=== PATIENT | male | born 1945 | race Caucasian/White ===

== ENCOUNTER 2020-01-18 09:37 | Outpatient (CLI) | payer MEDICARE, SELFPAY ==
--- NOTE | 2020-01-22 09:26 | WPDPFTINT ---
PFT Interpretation PFT Interpretation: This PFT met all criteria for ATS standards and reproducibility FEV/FVC post bronchodilator 67% FEV1 80% or 2.51 liters FVC 79% or 3.75 liters No bronchodilatory challenge was administered. TLC 84% RV 83% RV/TLC 38% DLCO 107% when adjusted for alveolar volume but not adjusted for hemoglobin Flow volume loops showed some end expiratory coving Impression: Mild airflow obstruction is present. This pattern may be suggestive of Asthma or COPD. Unfortunately no bronchodilator challenge was ordered which limits the interpretability of the study. Clinical correlation is advised.
== END 2020-01-18 09:38 | disposition home or self-care (01) ==
PROVIDERS: PCP Family Medicine; Visit Provider Family Medicine
DX: R06.00 Dyspnea, unspecified (principal); R06.89 Other abnormalities of breathing; G70.00 Myasthenia gravis without (acute) exacerbation
CPT/HCPCS: 94375; 94726; 94729

== ENCOUNTER 2022-07-12 13:52 | Emergency (ER) | payer MEDICARE, SELFPAY ==
--- NOTE | ~2022-07-12 | XR_ITS ---
XR chest 2V DATE: 07/12/2022 14:44 INDICATION: Cough and congestion for one month TECHNIQUE: 2 views COMPARISON: 09/30/2017 two-view chest FINDINGS: Heart size is normal. There is aortic calcification and unfolding. No hilar or mediastinal enlargement. No pulmonary infiltrate or consolidation, pleural effusion or pulmonary vascular congest ion or pneumothorax. Degenerative spurring of the thoracic spine. IMPRESSION: No active disease or significant change since 09/30/2017 Reviewed, dictated and finalized at location B.
[2022-07-12 14:03] VITALS: BP 128/87; PULSE 58; RESP 16; TEMP 36.4; O2SAT 98
[2022-07-12 14:05] VITALS: BP 128/87; PULSE 58; RESP 16; TEMP 36.4; O2SAT 98
--- NOTE | 2022-07-12 14:10 | ED.URI ---
HPI - URI/Sore Throat General Chief Complaint: Upper Respiratory Infection Stated Complaint: cough,congestion,shortness of breath Time Seen by Provider: 07/12/22 14:11 Source: patient, RN notes reviewed and old records reviewed Mode of arrival: ambulatory Limitations: no limitations History of Present Illness HPI Narrative: 76 year old male presents to [facility] care with complaints of cough,sinus congestion and drainage for about a month with no known fevers. Patient reports that he took home COVID test which was negative. Patient states that he has taken Mucinex, and used nasal spray with out resolution of his symptoms.Patient reports history of chronic sinus problems has not taken any antihistamines because messes with his prostate issues.Patient reports that his cough is productive and constant and he feels some dyspnea at times with exertion, SAO2 98% on room air, no tachypnea noted. MD elicited complaint: cough, rhinorrhea, nasal congestion and other Pertinent past history: sinusitis Onset (ago): week(s) (4) Consistency: constant Description of mucous: yellow Able to tolerate fluids by mouth: Yes Treatments prior to arrival: other (Mucinex and nasal spray.) Related Data Home Medications Medication Instructions Recorded Confirmed potassium gluconate 595 mg (99 mg) 595 mg PO DAILY 02/09/19 07/12/22 tablet vit C 250 mg-vit E 90 mg-zinc 40 1 tablet PO BID 02/09/19 07/12/22 mg-copper 1 [id number] capsule (PreserVision AREDS-2) zinc gluconate 50 mg tablet 50 mg PO DAILY 02/09/19 07/12/22 pyridostigmine bromide 60 mg tablet 60 mg PO BID 01/23/20 07/12/22 magnesium oxide 500 mg PO DAILY 03/31/22 07/12/22 terbinafine HCl 250 mg tablet 250 mg PO DAILY 03/31/22 07/12/22 Allergies Allergy/AdvReac Type Severity Reaction Status Date / Time No Known Allergies Allergy Verified 07/12/22 14:01 Review of Systems Review of Systems: CONSTITUTIONAL: Denies malaise, chills, sweats, or fever. EYES: Denies visual changes, redness, or discharge. ENT: Reports rhinorrhea, congestion, sinus pain,no otalgia, or sore throat. CARDIOVASCULAR: Denies chest pain, palpitations, or edema. RESPIRATORY: Reports loose cough.? Reports some dyspnea at times with exertion GASTROINTESTINAL: Denies abdominal pain, nausea, vomiting, diarrhea SKIN: Denies rash or itching. MUSCULOSKELETAL: Denies myalgia. NEUROLOGIC: Denies headache. All systems reviewed & are unremarkable except as noted in HPI and below PMFSH Past Medical History Medical History Asthma BPH (benign prostatic hyperplasia) Hypertension Macular degeneration Myasthenia gravis diagnosed 2018 no symptoms now SVT (supraventricular tachycardia) Surgical History Surgical History History of tonsillectomy Family History Family History Father Family history of Parkinson's disease Grandparent Hypertension Mother Family history of Parkinson's disease Social History Social History Smoking status: Former smoker Second hand tobacco smoke exposure: No Alcohol intake: current Drinks per week: 7 Substance use: never Substance use type: does not use Lack of Transportation: No Lack of Food: Never True Current Housing: I Have Housing Concerned About Future Housing: No Difficulty Paying Gas/Electric Bills: No Difficulty Paying for Meds: No Currently Unemployed: No Education: Bachelor's Degree Difficulty w/ Childcare or Family Care: No Gender identity (if verbalized by the patient): Male Comments At time of signature, agree with nursing past medical, surgical, social and family history. There is no relevant family history pertinent to the presenting complaint Exam Narrative: GENERAL: Well-appearing, wel
== END 2022-07-12 15:11 | disposition home or self-care (01) ==
PROVIDERS: Emergency Provider Registered Nurse; PCP Family Medicine
DX: J32.9 Chronic sinusitis, unspecified (principal); R05.3 Chronic cough; Z87.891 Personal history of nicotine dependence; J45.909 Unspecified asthma, uncomplicated; I10 Essential (primary) hypertension; N40.0 Benign prostatic hyperplasia without lower urinary tract symptoms; H35.30 Unspecified macular degeneration
CPT/HCPCS: 71046; 99213; G0463

== ENCOUNTER 2023-02-22 08:09 | Outpatient (CLI) | payer MEDICARE, SELFPAY ==
[2023-02-22 19:51] LABS: Alanine Aminotransferase 22 U/L (6-50); Albumin Level 3.4 g/dL (3.5-5.1); Alkaline Phosphatase 58 U/L (38-126); Anion Gap 4 mmol/L (8-16); Aspartate Amino Transferase 44 U/L (17-59); Bilirubin,Total 0.9 mg/dL (0.2-1.3); Blood Urea Nitrogen 17 mg/dL (9-20); Calcium 8.8 mg/dL (8.4-10.2); Carbon Dioxide 31 mmol/L (22-30); Chloride 102 mmol/L (98-107); Cholesterol 183 mg/dL (0-200); Estimated Glomerular Filt Rate > 60; Glucose 92 mg/dL (65-110); HDL Direct 57 mg/dL; Potassium 4.6 mmol/L (3.4-5.0); Sodium 137 mmol/L (137-145); Triglycerides 58 mg/dL (<150)
[2023-02-22 19:57] LABS: Basophils Percent Auto 0.5 % (0.2-1.2); Eosinophils Absolute Auto 0.2 K/mm3 (0-0.3); Eosinophils Percent Auto 2.4 % (0-4.4); Hematocrit 48.6 % (42.0-52.0); Hemoglobin 15.5 g/dL (14.0-18.0); Immature Granulocyte Absolute 0.03 K/mm3 (0.00-0.031); Immature Granulocyte Percent A 0.5 % (0-0.5); Lymphocytes Percent Auto 33.9 % (18.3-44.2); Mean Corpuscular HGB Conc 31.9 g/dl (32-36); Mean Corpuscular Hemoglobin 30.5 pg (26-34); Mean Corpuscular Volume 95.5 fl (80-100); Mean Platelet Volume 9.1 fl (7.4-10.4); Monocytes Absolute Auto 0.9 K/mm3 (0.1-0.6); Monocytes Percent Auto 14.1 % (2.6-8.5); Neutrophils Percent Auto 48.6 % (45.5-73.1); Platelet Count Result 198 k/mm3 (150-375); Red Blood Count 5.09 M/mm3 (4.6-6.20); Red Cell Distribution Width 13.3 % (11.5-14.5); White Blood Count 6.2 K/mm3 (4.5-10.0)
[2023-02-22 20:02] LABS: LDL Cholesterol Direct 96 mg/dL
[2023-02-22 20:21] LABS: Prostate Specific Antigen 0.4 ng/mL (< OR = 4.0)
[2023-02-22 20:43] LABS: Hepatitis C Virus Antibody Negative (Negative)
== END 2023-02-22 08:10 | disposition home or self-care (01) ==
PROVIDERS: PCP Family Medicine; Visit Provider Family Medicine
DX: N40.0 Benign prostatic hyperplasia without lower urinary tract symptoms (principal); R06.00 Dyspnea, unspecified; R06.89 Other abnormalities of breathing; E66.9 Obesity, unspecified; Z11.59 Encounter for screening for other viral diseases; E78.5 Hyperlipidemia, unspecified; I10 Essential (primary) hypertension; Z12.5 Encounter for screening for malignant neoplasm of prostate
CPT/HCPCS: 36415; 80053; 80061; 84153; 85025; 86803; G0103

== ENCOUNTER 2023-07-13 08:55 | Outpatient (CLI) | payer MEDICARE, SELFPAY ==
--- NOTE | 2023-08-04 18:49 | WPDSLEEPSTUD ---
Sleep Study Date of Study: 07/13/23 Ordering Provider: Sandy Rodriguez DO Interpreting Physician: Mitzy Wise MD Sleep Study Type: Split Polysomnogram Height: 1.85 m Weight: 113.398 kg Body Mass Index: 33.0 Neck Circumference (inches): 17 Parish: 11 Reason for Sleep Study Hypersomnolence Sleep History Joshua Hallman is a 77-year-old man with fragmented sleep, only 3 or 4 hours of sleep at a time. He has hypertension, asthma and COPD, hiatal hernia, erectile dysfunction and BPH. He he has not had any dreams for the last 4-5 months. There is a family history of sleep apnea, his brother uses CPAP. The patient has a difficult time falling asleep and wakes up during the night. He uses nose sprays including Afrin to help with nasal congestion. He also raises the head of the bed, and he uses Breathe Right nasal strips to help him breathe at night. He occasionally awakens from sleep feeling short of breath. He rarely wakes at night with heartburn, belching or coughing.??He occasionally snores loudly enough that others complain. He frequently has trouble sleeping when he has a cold. He rarely wakes up gasping for breath during the night. He occasionally has breathing problems at night. He rarely sweats excessively at night. He rarely notices his heart pounding or beating irregularly during the night. He occasionally falls asleep during the day. He occasionally falls asleep involuntarily, rarely falls asleep while driving. He never experiences loss of muscle tone with strong emotion. He never has daytime difficulty at work due to excessive sleepiness. He never feels paralyzed on waking or falling asleep. He never experiences vivid dreams upon waking or falling asleep. He occasionally feels afraid of going to sleep. He rarely has nightmares. He occasionally recalls his dreams. He frequently has thoughts racing through his mind. He never feels sad or depressed. He occasionally feels anxiety. He rarely notices parts of his body jerk. He never kicks during the night. He never feels crawling or aching feelings in his legs. He rarely feels leg pain at night. He never has morning jaw pain, never rarely grinds his teeth at night. He rarely feels bothered by pain during the day, rarely awakened by pain during the night. He occasionally wakes up feeling stiff in the morning, and he occasionally wakes feeling sore or achy. He rarely awakens with pain in his neck, spine, or joints. He has had a 20 lb weight gain in the last year. Normal bedtime is 11:00 p.m., falling asleep sometimes more quickly than other times. He wakes in the night 3-4 times and will watch television. He stays awake from 15 minutes but sometimes as long as 2 hours. His normal wake time is 6:30 a.m.. On weekends his bedtime is 12 midnight and his wake time is 7:30 a.m.. He estimates getting between 4 and 6 hours of sleep at night. He takes naps in the afternoon or evening, and a short nap lasting 10-15 minutes might be refreshing. He is usually drowsy for 1 hour after waking. He feels better in the morning compared to other times of day. Habits:??Tobacco: prior smoker Caffeine: none Alcohol:1-2 per day Recreational substances: none [facility] Past Medical History Medical History Asthma BPH (benign prostatic hyperplasia) Hypertension Macular degeneration Myasthenia gravis diagnosed 2018 no symptoms now SVT (supraventricular tachycardia) Surgical History Surgical History History of tonsillectomy Family History Family History Father Family history of Parkinson's disease Grandparent Hypertension Mother Family history of Parkinson's disease Social History Social History Smoking status: Former smoker Second hand tobacco smoke
[2023-08-04 21:04] VITALS: BMI 33.0
== END 2023-07-14 07:20 | disposition home or self-care (01) ==
LOC: ANHCSM 08:56
PROVIDERS: PCP Family Medicine; Visit Provider Family Medicine
DX: G47.33 Obstructive sleep apnea (adult) (pediatric) (principal); G47.9 Sleep disorder, unspecified; I10 Essential (primary) hypertension; J45.909 Unspecified asthma, uncomplicated; H35.30 Unspecified macular degeneration; Z87.891 Personal history of nicotine dependence
CPT/HCPCS: 95811

== ENCOUNTER 2024-01-07 10:01 | Emergency (ER) | payer MEDICARE, SELFPAY ==
--- NOTE | ~2024-01-07 | XR_ITS ---
XR chest 2V DATE: 01/07/2024 10:38 INDICATION: Cough, chest pain with inspiration TECHNIQUE: PA and lateral views COMPARISON: 07/12/2022 2 view chest FINDINGS: Heart size. There is aortic unfolding and calcification. No hilar or mediastinal enlargement. Minimal infiltrate or atelectasis at the lung bases, primarily on the right. The lungs otherwise appe ar clear. No significant pleural effusion. No pulmonary vascular congestion or pneumothorax. Degenerative spurring and levoscoliosis of the thoracolumbar spine. IMPRESSION: Borderline heart size. Aortic atherosclerosis Minimal infiltrate or atelectasis at the lung bases, greater on the right Reviewed, dictated and finalized at location A. [facility] [employer]
--- NOTE | 2024-01-07 10:11 | ED.URI ---
HPI - URI/Sore Throat General Chief Complaint: Chest Pain Stated Complaint: Rib/Chest Pain Time Seen by Provider: 01/07/24 10:15 Source: patient Mode of arrival: ambulatory Limitations: no limitations History of Present Illness HPI Narrative: Joshua is a 78-year-old male patient presenting to the clinic today with complaints of bilateral rib/chest discomfort. He reports pain is worse with taking a deep breath. States that pain started . Prior to was having some back pain that radiated into his hip. Was seen by his PCP and given Tylenol with codeine and a muscle relaxer for the pain. States his back pain was improving but developed the chest discomfort/rib pain on . Reports occasional cough. No fevers, chills, body aches. No history of aneurysm. Is a nonsmoker. Denies any URI symptoms Related Data Home Medications Medication Instructions Recorded Confirmed potassium gluconate 595 mg (99 mg) 595 mg PO DAILY 02/09/19 01/07/24 tablet vit C 250 mg-vit E 90 mg-zinc 40 1 tablet PO BID 02/09/19 01/07/24 mg-copper 1 [id number] capsule (PreserVision AREDS-2) cholecalciferol (vitamin D3) 10 10 mcg PO DAILY 09/03/22 01/07/24 mcg (400 unit) capsule coenzyme Q10 75 mg capsule (Ultra 200 mg PO DAILY 03/02/23 01/07/24 CoQ10) magnesium oxide 400 mg PO DAILY 03/02/23 01/07/24 vitamin B12 2,500 mcg-folic acid 1 tablet PO DAILY 03/02/23 01/07/24 400 mcg disintegrating tablet zinc gluconate 50 mg tablet 30 mg PO DAILY 03/02/23 01/07/24 hydrocodone 5 mg-acetaminophen 325 1 tablet PO PRN PRN back pain 01/07/24 01/07/24 mg tablet Allergies Allergy/AdvReac Type Severity Reaction Status Date / Time No Known Allergies Allergy Verified 01/07/24 10:03 Review of Systems Review of Systems: Pertinent positives per HPI. Patient denies any fever, chills, rash, headache, visual changes, dizziness, shortness of breath, palpitations, nausea, vomiting, diarrhea, constipation, abdominal pain, or any urinary issues. [facility] Past Medical History Medical History Asthma Basal cell carcinoma (~12/2023) removal BPH (benign prostatic hyperplasia) Hypertension Macular degeneration Myasthenia gravis diagnosed 2018 no symptoms now SVT (supraventricular tachycardia) Surgical History Surgical History H/O cataract removal with insertion of prosthetic lens October and November 2023 History of tonsillectomy Family History Family History Father Family history of Parkinson's disease Grandparent Hypertension Mother Family history of Parkinson's disease Social History Social History Social History: Caffeine decaf coffee, soda occasionally Smoking status: Former smoker Second hand tobacco smoke exposure: No Smoking end date: 02/07/73 Alcohol intake: current Drinks per week: 7 Substance use: never Substance use type: does not use Do You Feel Safe in your Home?: Yes Lack of Transportation: No Lack of Food: Never True Current Housing: I Have Housing Concerned About Future Housing: No Difficulty Paying Gas/Electric Bills: No Difficulty Paying for Meds: No Currently Unemployed: No Education: Bachelor's Degree Difficulty w/ Childcare or Family Care: No Gender identity (if verbalized by the patient): Male Comments At the time of my signature, I reviewed and agree with the nursing past medical, surgical, social, and family history. There is no relevant family history pertinent to the patient complaint. Exam Narrative: General: Well-developed, well nourished, in no apparent distress Head: Normocephalic, atraumatic. Cardio: Regular rate and rhythm, s1 and s2 normal, no murmur appreciated. Resp: Clear to auscultation bilaterally, no rhonchi, rales, wheezing or rubs. Extremities: No deformity, no edema, no cyanosis, capillary refill less than 2 seconds, peripheral pulses palpable and strong. Integumentary: [place], warm, and dry, intact without lesion, no rashes. Abdomen: Soft, pliable, bowel sounds present in all quadrants, tender to palpation to the upper abdomen bilaterally, no organomegly, no CVAT tenderness. Course Course Emergency Course: Portions of this record may have been created with voice recognition software. Level of Care: Express Care Visit Vital Signs Vital signs: Vital signs reviewed MDM - URI/Sore Throat MDM Narrative Medical decision making narrative: At the time of visit patient is resting comfortably on the exam table. Patient appears to be nontoxic. EKG: EKG shows normal sinus rhythm with heart rate of 64 beats per minute without ST elevation, depression, or T-wave abnormality. Diagnostics: Chest x-ray shows aortic on folding with calcification without mediastinal enlargement. Minimal atelectasis versus infiltrate to the bilateral lower lobes. Plan: Recommend transfer to the ER for further evaluation as have patient is having chest pain with inspiration and pain to the upper abdomen and ribs. Would like to rule out PE/dissecting aneurysm. Patient would like to go to [facility]. Contacted Dr. Lassiter and he accepts patient for transfer. Differential Diagnosis Differential diagnosis: Likely upper respiratory infection, otitis media, sinusitis, viral infection, bronchitis, influenza (Dissecting aortic aneurysm, pulmonary embolism, pneumonia), pharyngitis and other (COVID) Imaging Data Radiologist's impression: ITS Impressions Chest X-Ray 01/07/24 10:42 IMPRESSION: Borderline heart size. Aortic atherosclerosis Minimal infiltrate or atelectasis at the lung bases, greater on the right ECG Data EKG #1: Attestation: I personally reviewed and interpreted this ECG as follows: ECG completion date: 01/07/24 ECG completion time: 10:30 Interpretation: EKG shows normal sinus rhythm with heart rate of 64 beats per minute. No ST elevation, depression, or T-wave inversion noted. IN intervals 209 milliseconds, QRS durations 92 milliseconds, QT-QTC is 367-376 milliseconds, P-R-T axis is -3 -17 -5 Discharge Plan Discharge Clinical Impression: Chest pain on respiration, Acute upper abdominal pain Patient Disposition: Acute Care Hospital Condition: Stable Instructions: Antibiotic Form Prescriptions: No Action hydrocodone-acetaminophen 5-325 mg tablet 1 tablet PO PRN PRN (Reason: back pain ) cholecalciferol (vitamin D3) 10 mcg (400 unit) capsule 10 mcg PO DAILY Ultra CoQ10 75 mg capsule 200 mg PO DAILY vitamin [id number] acid 2,500-400 mcg tablet,disintegrating 1 tablet PO DAILY famotidine [Pepcid] 40 mg tablet 40 mg PO QHS Qty: 90 1RF cyclobenzaprine 10 mg tablet 10 mg PO TID PRN (Reason: muscle spasm) Qty: 30 0RF potassium gluconate 595 mg (99 mg) Tablet 595 mg PO DAILY PreserVision AREDS-2 [id number]-mg Capsule 1 tablet PO BID magnesium oxide 250 mg magnesium tablet 400 mg PO DAILY zinc gluconate 50 mg tablet 30 mg PO DAILY fluticasone propionate 50 mcg/actuation spray,suspension 2 spray NASAL DAILY PRN (Reason: Congestion) Qty: 19.8 11RF atorvastatin 10 mg tablet 10 mg PO QHS Qty: 90 1RF (DME) CPAP See Rx Instructions .Route .MEDSUPPLY Qty: 1 0RF Rx Instructions: CPAP 17 cm using the large ResMed AirTouch F20 fullface mask and heated humidity finasteride 5 mg tablet 5 mg PO DAILY Qty: 90 1RF metoprolol succinate 25 mg tablet extended release 24 hr 25 mg PO DAILY Qty: 90 1RF tamsulosin [Flomax] 0.4 mg capsule 0.8 mg PO DAILY Qty: 180 3RF Follow-up/Referrals: Abdirashid Hunter MD [Primary Care Provider] - Time of Disposition: 10:58 Quality NIHSS Nursing Documentation ED NIHSS nursing documentation: reviewed/agree
[2024-01-07 10:13] VITALS: BP 113/99; PULSE 71; RESP 16; TEMP 36.5; O2SAT 98
--- NOTE | 2024-01-07 10:13 | ECG_ITS ---
Test Date: 2024-01-07 10:30:05 Measurements Intervals [place] Rate: 64 P: -3 SC: 209 QRS: -17 QRSD: 92 T: -5 QT: 367 QTc: 379 Interpretive Statements SINUS RHYTHM DELAYED PRECORDIAL R/S TRANSITION BORDERLINE ST-T WAVE ABNORMALITY- INFERIOR LEADS BASELINE ARTIFACT- I, II, III, AVR, AVL, AVF, V1-V6 BORDERLINE ECG No previous ECG available for comparison Electronically Signed On 01-07-2024 14:08:43 ROOFING TECHNICIAN by Moshe Carrion D.O.
== END 2024-01-07 10:58 | disposition short-term general hospital (02) ==
PROVIDERS: Emergency Provider Nurse Practitioner Family; PCP Family Medicine
DX: R07.1 Chest pain on breathing (principal); R10.10 Upper abdominal pain, unspecified; J45.909 Unspecified asthma, uncomplicated; I10 Essential (primary) hypertension; N40.0 Benign prostatic hyperplasia without lower urinary tract symptoms; H35.30 Unspecified macular degeneration; Z85.828 Personal history of other malignant neoplasm of skin; Z87.891 Personal history of nicotine dependence
CPT/HCPCS: 71046; 93005; 99213; G0463

== ENCOUNTER 2024-01-07 11:18 | Emergency (ER) | payer MEDICARE, SELFPAY ==
[2024-01-07] VITALS (11 sets, daily range): BP systolic 136–157; BP diastolic 77–94; PULSE 63–73; RESP 15–21; O2SAT 94–99
--- NOTE | ~2024-01-07 | CT_ITS ---
EXAMINATION: CTA chest abdomen pelvis DATE: 01/07/2024 14:30 INDICATION: Chest pain radiating to back and abdomen . TECHNIQUE: Computed tomography angiography of the chest, abdomen, and pelvis was performed with 100 m L Omnipaque-350 intravenous contrast in the arterial phase. Automated exposure control and iterative reconstruction technique were employed. The dose-length product was 1436.17 mGy-cm. COMPARISON: None FINDINGS: CHEST: Thoracic aorta: No significant dilation. No dissection. Mild calcification. Lung parenchyma and airways: Motion artifact in the lung bases. Bilateral dependent atelectasis, grea ter on the right. Granulomatous calcifications. Thoracic inlet, axillae and chest wall: No thyroid or soft tissue mass. No axillary lymphadenopathy. Mediastinum: No mass or lymphadenopathy. Heart and pericardium: Cardiomegaly. No pericardial effusion. Coronary artery calcifications: Mild. Pleura: Small volume right pleural fluid collection. Thoracic bones: No acute osseous finding in the chest. ABDOMEN/PELVIS: Liver: Normal. Biliary/Gallbladder: Gallbladder is normal. No bile duct dilation. Pancreas: Fatty infiltration. Spleen: Normal. Adrenals:No mass. Kidneys: No suspicious mass, obstructing stone, or hydronephrosis. GI tract: No small or large bowel dilation. Appendix not confidently visualized. Mesentery/Peritoneum: No ascites, mass, or free air. Splenorenal shunt on the left. Retroperitoneum: No mass Pelvis: Somewhat distended urinary bladder without wall thickening. Enlarged prostate. Soft Tissues: Small uncomplicated fat-containing bilateral inguinal hernias Abdominopelvic bones: No acute osseous finding in the abdomen/pelvis. IMPRESSION: Small volume right pleural effusion. Splenorenal shunt on the left which may indicate presence of portal hypertension. Reviewed, dictated and finalized at location K. [employer] IMPRESSION: Small volume right pleural effusion. Splenorenal shunt on the left which may indicate presence of portal hypertensio n.
--- NOTE | 2024-01-07 11:29 | ECG_ITS ---
Test Date: 2024-01-07 11:36:24 Measurements Intervals [place] Rate: 61 P: 10 MA: 220 QRS: -15 QRSD: 98 T: 10 QT: 376 QTc: 380 Interpretive Statements SINUS RHYTHM WITH FIRST DEGREE AV BLOCK DELAYED PRECORDIAL R/S TRANSITION BASELINE ARTIFACT- I, II, III, AVR, AVL, AVF BORDERLINE ECG Compared to ECG 01/07/2024 10:30:05 NO SIGNIFICANT CHANGE Electronically Signed On 01-07-2024 14:03:20 CASINO CAGE SUPERVISOR by Moshe Carrion D.O.
[2024-01-07 11:52] LABS: Basophils Percent Auto 0.3 % (0.2-1.2); Eosinophils Absolute Auto 0.1 K/mm3 (0-0.3); Eosinophils Percent Auto 1.4 % (0-4.4); Hematocrit 45.4 % (42.0-52.0); Hemoglobin 15.6 g/dL (14.0-18.0); Immature Granulocyte Absolute 0.04 K/mm3 (0.00-0.031); Immature Granulocyte Percent A 0.4 % (0-0.5); Lymphocytes Absolute Auto 1.58 K/mm3 (0.9-3.2); Lymphocytes Percent Auto 17.4 % (18.3-44.2); Mean Corpuscular HGB Conc 34.4 g/dl (32-36); Mean Corpuscular Hemoglobin 31.7 pg (26-34); Mean Corpuscular Volume 92.3 fl (80-100); Mean Platelet Volume 8.2 fl (7.4-10.4); Monocytes Absolute Auto 1.8 K/mm3 (0.1-0.6); Monocytes Percent Auto 19.3 % (2.6-8.5); Neutrophils Absolute Auto 5.5 K/mm3 (1.3-6.7); Neutrophils Percent Auto 61.2 % (45.5-73.1); Platelet Count Result 162 k/mm3 (150-375); Red Blood Count 4.92 M/mm3 (4.6-6.20); Red Cell Distribution Width 13.3 % (11.5-14.5); White Blood Count 9.1 K/mm3 (4.5-10.0)
[2024-01-07 12:14] LABS: INR 1.1; Prothrombin Time 14.4 Seconds (11.1-14.7)
[2024-01-07 12:15] LABS: Partial Thromboplastin Time 25.9 Seconds (22.3-36.8)
[2024-01-07] MEDS: ASPIRIN 81 MG CHEWABLE TABLET 324 MG PO (12:59)
[2024-01-07 13:22] LABS: Alanine Aminotransferase 28 U/L (6-50); Albumin Level 3.7 g/dL (3.5-5.1); Alkaline Phosphatase 71 U/L (38-126); Anion Gap 3 mmol/L (4-12); Aspartate Amino Transferase 25 U/L (17-59); Bilirubin,Total 1.4 mg/dL (0.2-1.3); Blood Urea Nitrogen 17 mg/dL (9-20); Calcium 8.3 mg/dL (8.4-10.2); Carbon Dioxide 30 mmol/L (22-30); Chloride 100 mmol/L (98-107); Estimated CRCL calculation 81 ml/min; Estimated Glomerular Filt Rate > 60; Glucose 85 mg/dL (65-110); Lipase 44 U/L (23-300); Potassium 4.5 mmol/L (3.4-5.0); Sodium 133 mmol/L (137-145)
[2024-01-07 13:33] LABS: Troponin I < 0.012 ng/mL (0.000-0.034)
--- NOTE | 2024-01-07 15:11 | ECG_ITS ---
Test Date: 2024-01-07 14:52:37 Measurements Intervals [place] Rate: 66 P: 9 IA: 207 QRS: -3 QRSD: 94 T: 15 QT: 389 QTc: 408 Interpretive Statements SINUS RHYTHM WITH FIRST DEGREE AV BLOCK BORDERLINE ST-T WAVE ABNORMALITY- INFERIOR LEADS BASELINE ARTIFACT- I, II, III, AVR, AVL, AVF, V1 BORDERLINE ECG Compared to ECG 01/07/2024 11:36:24 NO SIGNIFICANT CHANGE Electronically Signed On 01-07-2024 16:43:40 KETTLE LOADER by Moshe Carrion D.O.
[2024-01-07 15:35] LABS: Troponin I < 0.012 ng/mL (0.000-0.034)
--- NOTE | 2024-01-07 15:44 | ED.GENADULT ---
HPI - General Adult General Chief complaint: Chest Pain Stated complaint: chest pain Time Seen by Provider: 01/07/24 12:39 History of Present Illness HPI narrative: This is a 78-year-old male presenting ED with chief complaint of chest pain. He was sent from an urgent care after having chest pain and pain on inspiration. the pain is sharp. It is primarily on the right side. No recent viral illness. No shortness of breath. No fevers chills productive cough. Patient did pull a back muscle last week is been treated with pain medication from his primary care physician. Related Data Home Medications Medication Instructions Recorded Confirmed potassium gluconate 595 mg (99 mg) 595 mg PO DAILY 02/09/19 01/07/24 tablet vit C 250 mg-vit E 90 mg-zinc 40 1 tablet PO BID 02/09/19 01/07/24 mg-copper 1 [id number] capsule (PreserVision AREDS-2) cholecalciferol (vitamin D3) 10 10 mcg PO DAILY 09/03/22 01/07/24 mcg (400 unit) capsule coenzyme Q10 75 mg capsule (Ultra 200 mg PO DAILY 03/02/23 01/07/24 CoQ10) magnesium oxide 400 mg PO DAILY 03/02/23 01/07/24 vitamin B12 2,500 mcg-folic acid 1 tablet PO DAILY 03/02/23 01/07/24 400 mcg disintegrating tablet zinc gluconate 50 mg tablet 30 mg PO DAILY 03/02/23 01/07/24 hydrocodone 5 mg-acetaminophen 325 1 tablet PO PRN PRN back pain 01/07/24 01/07/24 mg tablet Allergies Allergy/AdvReac Type Severity Reaction Status Date / Time No Known Allergies Allergy Verified 01/07/24 10:03 [facility] Past Medical History Medical History Asthma Basal cell carcinoma (~12/2023) removal BPH (benign prostatic hyperplasia) Hypertension Macular degeneration Myasthenia gravis diagnosed 2018 no symptoms now SVT (supraventricular tachycardia) Surgical History Surgical History H/O cataract removal with insertion of prosthetic lens October and November 2023 History of tonsillectomy Family History Family History Father Family history of Parkinson's disease Grandparent Hypertension Mother Family history of Parkinson's disease Social History Social History Social History: Caffeine decaf coffee, soda occasionally Smoking status: Former smoker Second hand tobacco smoke exposure: No Smoking end date: 02/07/73 Alcohol intake: current Drinks per week: 7 Substance use: never Substance use type: does not use Do You Feel Safe in your Home?: Yes Lack of Transportation: No Lack of Food: Never True Current Housing: I Have Housing Concerned About Future Housing: No Difficulty Paying Gas/Electric Bills: No Difficulty Paying for Meds: No Currently Unemployed: No Education: Bachelor's Degree Difficulty w/ Childcare or Family Care: No Gender identity (if verbalized by the patient): Male Exam Narrative: APPEARANCE: No apparent distress. well-appearing Head: atraumatic. EYES: EOMI, NOSE: Atraumatic NECK: Trachea midline RESPIRATORY: No increased rate of breathing , clear to auscultation CARDIOVASCULAR: RRR, no peripheral edema ABDOMINAL: Non-distended soft nontender MUSCULOSKELETAl: No obvious deformities NEURO: Alert. Moving 4/4 extremities SKIN:: Warm, dry. Normal color PSYCHIATRIC: Normal affect Course Vital Signs Vital signs: Vital Signs Pulse Rate 73 01/07/24 14:08 Respiratory Rate 19 01/07/24 14:08 Blood Pressure 152/82 H 01/07/24 14:08 Pulse Oximetry 96 01/07/24 14:08 Pulse Rate 69 01/07/24 14:08 Respiratory Rate 19 01/07/24 14:08 Blood Pressure 152/82 H 01/07/24 14:08 Pulse Oximetry 96 01/07/24 15:09 Oxygen Delivery Room Air 01/07/24 15:09 Medical Decision Making [facility] Narrative Medical decision making narrative: -Course: 78-year-old male sent to the ED for evaluation of pleuritic chest pain. CTA chest abdomen pelvis showed a small pleural effusion on the right side but no other findings. Symptoms consistent with pleurisy. Patient be treated with NSAIDs. EKG and troponins negative for ischemic findings. He has been instructed to follow up his primary care physician for further eval of his pleural effusion. Patient discharged. Given return precautions. -DDX includes but is not limited to: Aortic pathology, ACS -Co-morbidities complicating care: hypertension, hyper cholesterol -Independent interpretation of studies: labs and imaging reviewed Independent EKG interpretation: Rhythm [sinus], Rate [66], [place] -[normal], [place] -[normal], QRS [narrow], QTC [normal], T waves -[negative for concerning inversions], ST Segments - [Negative for concerning elevations] Final interpretations: [Normal Sinus Rhythm] -Interventions: Toradol, Tylenol -Shared decision making / Disposition: discharge -RX Motrin Tylenol Vital Signs Vital Signs: Vital Signs Pulse Rate 73 01/07/24 14:08 Respiratory Rate 19 01/07/24 14:08 Blood Pressure 152/82 H 01/07/24 14:08 Pulse Oximetry 96 01/07/24 14:08 Pulse Rate 69 01/07/24 14:08 Respiratory Rate 19 01/07/24 14:08 Blood Pressure 152/82 H 01/07/24 14:08 Pulse Oximetry 96 01/07/24 15:09 Oxygen Delivery Room Air 01/07/24 15:09 Lab Data 01/07/24 11:45 01/07/24 11:45 Labs: Lab Results 01/07/24 01/07/24 Range/Units 11:45 15:06 WBC 9.1 (4.5-10.0) K/mm3 RBC 4.92 (4.6-6.20) M/mm3 Hgb 15.6 (14.0-18.0) g/dL Hct 45.4 (42.0-52.0) % MCV 92.3 (80-100) fl MCH 31.7 (26-34) pg MCHC 34.4 (32-36) g/dl RDW 13.3 (11.5-14.5) % Plt Count 162 (150-375) k/mm3 MPV 8.2 (7.4-10.4) fl Immature Gran % (Auto) 0.4 (0-0.5) % Neut % (Auto) 61.2 (45.5-73.1) % Lymph % (Auto) 17.4 L (18.3-44.2) % [place] % (Auto) 19.3 H (2.6-8.5) % Eos % (Auto) 1.4 (0-4.4) % Baso % (Auto) 0.3 (0.2-1.2) % Lymph # (Auto) 1.58 (0.9-3.2) K/mm3 [place] # (Auto) 1.8 H (0.1-0.6) K/mm3 Eos # (Auto) 0.1 (0-0.3) K/mm3 Baso # (Auto) 0.0 (0.0-0.1) K/mm3 Abs Immat Gran (auto) 0.04 H (0.00-0.031) K/mm3 Absolute Neuts (auto) 5.5 (1.3-6.7) K/mm3 Absolute Nucleated RBC 0.000 (0.0-0.012) K/mm3 Nucleated RBC % 0.0 (0.0-0.2) % PT 14.4 (11.1-14.7) Seconds INR 1.1 APTT 25.9 (22.3-36.8) Seconds Sodium 133 L (137-145) mmol/L Potassium 4.5 (3.4-5.0) mmol/L Chloride 100 (98-107) mmol/L Carbon Dioxide 30 (22-30) mmol/L Anion Gap 3 L (4-12) mmol/L BUN 17 (9-20) mg/dL Creatinine 0.90 (0.7-1.3) mg/dL Estim Creat Clear Calc 81 ml/min Estimated GFR > 60 (59 - ) Glucose 85 (65-110) mg/dL Calcium 8.3 L (8.4-10.2) mg/dL Total Bilirubin 1.4 H (0.2-1.3) mg/dL AST 25 (17-59) U/L ALT 28 (6-50) U/L Alkaline Phosphatase 71 (38-126) U/L Troponin I < 0.012 < 0.012 (0.000-0.034) ng/mL Total Protein 7.0 (6.3-8.2) g/dL Albumin 3.7 (3.5-5.1) g/dL Lipase 44 (23-300) U/L Discharge Plan Discharge Clinical Impression: Pleurisy with effusion Patient Disposition: Home, Self-Care Condition: Stable Instructions: Antibiotic Form, Pleurisy (DC) Additional Instructions: please use Motrin Tylenol for your chest pain. Please follow-up with your primary care physician for further workup on your pleural effusion as needed. You can return any time if you develop chest pain, difficulty breathing, or any new or worsening symptoms. Prescriptions: New ibuprofen 800 mg tablet 800 mg PO TID PRN (Reason: pain) 7 Days Qty: 21 0RF acetaminophen 500 mg tablet 1,000 mg PO TID PRN (Reason: swapna) 7 Days Qty: 42 0RF No Action hydrocodone-acetaminophen 5-325 mg tablet 1 tablet PO PRN PRN (Reason: back pain ) cholecalciferol (vitamin D3) 10 mcg (400 unit) capsule 10 mcg PO DAILY Ultra CoQ10 75 mg capsule 200 mg PO DAILY vitamin [id number] acid 2,500-400 mcg tablet,disintegrating 1 tablet PO DAILY famotidine [Pepcid] 40 mg tablet 40 mg PO QHS Qty: 90 1RF cyclobenzaprine 10 mg tablet 10 mg PO TID PRN (Reason: muscle spasm) Qty: 30 0RF potassium gluconate 595 mg (99 mg) Tablet 595 mg PO DAILY PreserVision AREDS-2 [id number]-lvbz-ek-mg Capsule 1 tablet PO BID magnesium oxide 250 mg magnesium tablet 400 mg PO DAILY zinc gluconate 50 mg tablet 30 mg PO DAILY fluticasone propionate 50 mcg/actuation spray,suspension 2 spray NASAL DAILY PRN (Reason: Congestion) Qty: 19.8 11RF atorvastatin 10 mg tablet 10 mg PO QHS Qty: 90 1RF (DME) CPAP See Rx Instructions .Route .MEDSUPPLY Qty: 1 0RF Rx Instructions: CPAP 17 cm using the large ResMed AirTouch F20 fullface mask and heated humidity finasteride 5 mg tablet 5 mg PO DAILY Qty: 90 1RF metoprolol succinate 25 mg tablet extended release 24 hr 25 mg PO DAILY Qty: 90 1RF tamsulosin [Flomax] 0.4 mg capsule 0.8 mg PO DAILY Qty: 180 3RF Follow-up/Referrals: Abdirashid Hunter MD [Primary Care Provider] -
[2024-01-07] MEDS: ACETAMINOPHEN 500 MG TABLET 1000 MG PO (16:46)
[2024-01-07] MEDS: KETOROLAC 30 MG/ML VIAL (*BKC) IM (16:46)
== END 2024-01-07 16:51 | disposition home or self-care (01) ==
PROVIDERS: Emergency Provider Emergency Medicine; PCP Family Medicine
DX: J90 Pleural effusion, not elsewhere classified (principal); J45.909 Unspecified asthma, uncomplicated; I10 Essential (primary) hypertension; E78.00 Pure hypercholesterolemia, unspecified; N40.0 Benign prostatic hyperplasia without lower urinary tract symptoms; H35.30 Unspecified macular degeneration; Z85.828 Personal history of other malignant neoplasm of skin; Z87.891 Personal history of nicotine dependence; Z96.89 Presence of other specified functional implants; Z96.1 Presence of intraocular lens; Z98.49 Cataract extraction status, unspecified eye; I44.0 Atrioventricular block, first degree; R94.31 Abnormal electrocardiogram [ECG] [EKG]
CPT/HCPCS: 36415; 71046; 71275; 74174; 80053; 83690; 84484; 85025; 85610; 85730; 93005; 96372; 99284; A9270; J1885; Q9967

== ENCOUNTER 2024-01-16 07:11 | Inpatient (IN) | payer MEDICARE, SELFPAY ==
[2024-01-16] VITALS (7 sets, daily range): BP systolic 157–181; BP diastolic 88–113; PULSE 66–76; RESP 15–18; TEMP 36–36.8; O2SAT 92–98; BMI 33.5
--- NOTE | ~2024-01-16 | CT_ITS ---
CT abdomen pelvis w con Ordering provider: Marciano Medina MD History: 78 years Male with . abdominal pain . Comparison: January 07, 2024 Technique: CT abdomen and pelvis with IV and without oral contrast. Automated exposure control and it erative reconstruction technique were employed. The dose-length product was 1232.95 mGy-cm. 100 mL Om nipaque 350 was given IV. Findings: VISUALIZED LOWER CHEST: Normal. UPPER ABDOMINAL ORGANS: Liver: Fat infiltration. Gallbladder: Normal. Spleen: Normal. Stomach/duodenum: Normal. Pancreas: Minimal fat infiltration in the area of the head of the pancreas suggestive of pancreatitis . Adrenals: Normal. Kidneys: Left parapelvic renal cysts. Minimal fullness of the right renal pelvis. No ureteric stones seen bilaterally. PELVIC ORGANS: The bladder is underfilled with thickened wall. Evaluation for cystitis advised. BOWEL AND MESENTERY: Colon: No evidence of diverticulitis. Appendix is not demonstrated. Small Bowel: Normal. No obstruction. Peritoneum/mesentery: No free air or free fluid. No mesenteric lymphadenopathy. RETROPERITONEUM: Mild atheromatous disease of the abdominal aorta. Slight dilatation of the aorta me asuring 3.3 cm is noted. retroperitoneal lymphadenopathy in the left para-aortic area is noted with the largest measuring 2 c m.. MUSCULOSKELETAL: Superficial soft tissues: Right inguinal fat containing hernia. The superficial soft tissues are nor mal. Bones: Age appropriate degenerative changes of the spine. Bilateral sacroiliitis. IMPRESSION: 1. Pancreatitis involving the head of the pancreas. 2. Fat infiltration of the liver. 3. No evidence of appendicitis, diverticulitis or intestinal obstruction. Reviewed, dictated and finalized at location A. [facility] CLINICAL DIRECTOR
[2024-01-16 07:40] LABS: Hematocrit 46.2 % (42.0-52.0); Hemoglobin 15.9 g/dL (14.0-18.0); Mean Corpuscular HGB Conc 34.4 g/dl (32-36); Mean Corpuscular Volume 90.1 fl (80-100); Mean Platelet Volume 8.4 fl (7.4-10.4); Platelet Count Result 242 k/mm3 (150-375); Red Blood Count 5.13 M/mm3 (4.6-6.20); Red Cell Distribution Width 13.2 % (11.5-14.5); White Blood Count 13.7 K/mm3 (4.5-10.0)
--- NOTE | 2024-01-16 07:42 | ED.ABDPAIN ---
HPI - Abdominal Pain General Chief Complaint: Abdominal Pain Stated Complaint: abd pain Time Seen by Provider: 01/16/24 07:18 History of Present Illness HPI narrative: Patient is a 78-year-old male who presents ER with periumbilical abdominal discomfort. Ongoing for 2 days. No fevers or chills or sweats. He has not had a bowel movement and feels gassy. He has tried Prilosec as well as activated charcoal tablets and Pepto-Bismol without improvement. No vomiting. No history of previous abdominal surgery. He had recently been taking ibuprofen for some chest discomfort which did alleviate that issue. He discontinue that medication Tuesday when his stomach became upset. He has also taken some Dulcolax w/o improvement. Related Data Home Medications Medication Instructions Recorded Confirmed potassium gluconate 595 mg (99 mg) 595 mg PO DAILY 02/09/19 01/16/24 tablet vit C 250 mg-vit E 90 mg-zinc 40 1 tablet PO BID 02/09/19 01/16/24 mg-copper 1 hr-lhhpvg-pzwkpr capsule (PreserVision AREDS-2) cholecalciferol (vitamin D3) 10 10 mcg PO DAILY 09/03/22 01/16/24 mcg (400 unit) capsule magnesium oxide 400 mg PO DAILY 03/02/23 01/16/24 vitamin B12 2,500 mcg-folic acid 1 tablet PO DAILY 03/02/23 01/16/24 400 mcg disintegrating tablet zinc gluconate 50 mg tablet 30 mg PO DAILY 03/02/23 01/16/24 acetaminophen 500 mg tablet 1,000 mg PO TID PRN Pain, Mild 01/16/24 01/16/24 fluticasone propionate 50 1 spray intranasal DAILY PRN 01/16/24 01/16/24 mcg/actuation nasal Congestion spray,suspension Allergies Allergy/AdvReac Type Severity Reaction Status Date / Time No Known Allergies Allergy Verified 01/16/24 13:17 Review of Systems Review of Systems: All systems reviewed & are unremarkable except as noted in HPI and below Constitutional: Constitutional: Reports no additional constitutional complaints Cardiovascular: Cardiovascular: Reports no additional cardiovascular complaints Respiratory: Respiratory: Reports no additional respiratory complaints Gastrointestinal: Gastrointestinal: Reports abdominal pain, Reports bloating, Reports constipation, Denies diarrhea, Denies nausea and Denies vomiting [facility] Past Medical History Medical History (Updated 01/16/24 @ 20:04 by Marciano Medina MD) Asthma Basal cell carcinoma Benign prostatic hyperplasia Hypertension Macular degeneration Myasthenia gravis (2018) Supraventricular tachycardia Surgical History Surgical History (Updated 01/16/24 @ 12:37 by Maria Esther Majano PA-C) History of basal cell carcinoma excision (12/2023) History of cataract extraction with lens replacement (2023) History of tonsillectomy Family History Family History (Updated 01/16/24 @ 13:05 by Celeste Miller RN) Father No problems noted. Grandparent Hypertension Mother Family history of Parkinson's disease Social History Social History Social History: Caffeine decaf coffee, soda occasionally Smoking status: Former smoker Tobacco type: cigarettes Second hand tobacco smoke exposure: No Smoking end date: 01/15/74 Alcohol intake: current Drinks per week: 7 Substance use: never Substance use type: does not use Do You Feel Safe in your Home?: Yes Lack of Transportation: No Lack of Food: Never True Current Housing: I Have Housing Concerned About Future Housing: No Difficulty Paying Gas/Electric Bills: No Difficulty Paying for Meds: No Currently Unemployed: No Education: Don't Know Difficulty w/ Childcare or Family Care: No Gender identity (if verbalized by the patient): Male Spiritual care concerns: No Exam Narrative: GENERAL: Well-appearing, well-nourished, and in no acute distress. HEAD: Normocephalic, atraumatic. CHEST: Clear to auscultation. No respiratory distress. HEART: Regular rate and rhythm. Normal peripheral pulses. ABDOMEN: Soft, periumbilical and epigastric guarding, nondistended, normal active bowel sounds. EXTREMITIES: Normal range of motion. No edema. SKIN: Warm, dry, no rash. NEURO: Alert and oriented x3. PSYCH: Normal mood and affect. Course Course Emergency Course: Morphine for pain control. Patient be admitted for observation while being NPO and receiving fluids. Vital Signs Vital signs: Vital Signs Temperature 98.2 F 01/16/24 07:16 Pulse Rate 76 01/16/24 07:16 Respiratory Rate 17 01/16/24 07:16 Blood Pressure 164/113 H 01/16/24 07:16 Pulse Oximetry 97 01/16/24 07:16 Oxygen Delivery Room Air 01/16/24 07:16 Temperature 98.1 F 01/16/24 14:00 Pulse Rate 74 01/16/24 14:00 Respiratory Rate 18 01/16/24 14:00 Blood Pressure 162/94 H 01/16/24 17:41 Pulse Oximetry 92 01/16/24 14:00 Oxygen Delivery Room Air 01/16/24 07:16 MDM - Abdominal Pain Lab Data 01/16/24 07:33 01/16/24 07:33 Labs: Lab Results 01/16/24 01/16/24 Range/Units 07:30 07:33 WBC 13.7 H (4.5-10.0) K/mm3 RBC 5.13 (4.6-6.20) M/mm3 Hgb 15.9 (14.0-18.0) g/dL Hct 46.2 (42.0-52.0) % MCV 90.1 (80-100) fl MCH 31.0 (26-34) pg MCHC 34.4 (32-36) g/dl RDW 13.2 (11.5-14.5) % Plt Count 242 (150-375) k/mm3 MPV 8.4 (7.4-10.4) fl Immature Gran % (Auto) Not Reportable Neut % (Auto) Not Reportable Lymph % (Auto) Not Reportable [place] % (Auto) Not Reportable Eos % (Auto) Not Reportable Baso % (Auto) Not Reportable Lymph # (Auto) Not Reportable [place] # (Auto) Not Reportable Eos # (Auto) Not Reportable Baso # (Auto) Not Reportable Abs Immat Gran (auto) Not Reportable Absolute Neuts (auto) Not Reportable Absolute Nucleated RBC Not Reportable Nucleated RBC % Not Reportable Sodium 132 L (137-145) mmol/L Potassium 4.4 (3.4-5.0) mmol/L Chloride 97 L (98-107) mmol/L Carbon Dioxide 32 H (22-30) mmol/L Anion Gap 3 L (4-12) mmol/L BUN 13 (9-20) mg/dL Creatinine 0.80 (0.7-1.3) mg/dL Estim Creat Clear Calc 90 ml/min Estimated GFR > 60 (59 - ) Glucose 123 H (65-110) mg/dL Calcium 9.1 (8.4-10.2) mg/dL Total Bilirubin 1.1 (0.2-1.3) mg/dL AST 31 (17-59) U/L ALT 24 (6-50) U/L Alkaline Phosphatase 82 (38-126) U/L Total Protein 8.0 (6.3-8.2) g/dL Albumin 4.2 (3.5-5.1) g/dL Lipase 489 H (23-300) U/L Urine Color Yellow (Yellow) Urine Appearance Clear (Clear) Urine pH 8.0 (5.0-9.0) Ur Specific [place] 1.021 (1.001-1.035) Urine Protein 2+ H (Negative) mg/dL Urine Glucose (UA) Trace H (Negative) mg/dL Urine Ketones Negative (Negative) mg/dL Ur Blood (Man) Negative (Negative) Urine Nitrate Negative (Negative) Urine Bilirubin Negative (Negative) Urine Urobilinogen 1.0 (<2.0) mg/dL Leukocyte Esterase Rfl Negative (Negative) BARRETT/UL Urine RBC 0-2 (0-2) /hpf Urine WBC 0-5 (0-3) /hpf Ur Squamous Epith Cells None seen (Few) /hpf Urine Bacteria None seen /hpf Urine Casts 0-2 Imaging Data Radiologist's impression: ITS Impressions Abdomen/Pelvis CT 01/16/24 08:30 IMPRESSION: 1. Pancreatitis involving the head of the pancreas. 2. Fat infiltration of the liver. 3. No evidence of appendicitis, diverticulitis or intestinal obstruction. Discharge Plan Discharge Clinical Impression: Pancreatitis Patient Disposition: Still a Patient Condition: Stable
[2024-01-16 07:47] LABS: Add Urine Microscopic? YES; Appearance Urine Clear (Clear); Bacteria Urine None Seen /hpf; Bilirubin Urine Negative (Negative); Blood Urine Negative (Negative); Color Urine Yellow (Yellow); Glucose Urine UA Trace mg/dL (Negative); Ketones Urine Negative (Negative); Leukocyte Esterase Ur Negative LEU/UL (Negative); Nitrate Urine Negative (Negative); Non Pathogenic Casts 0-2; Protein Urine 2+ mg/dL (Negative); RBC Urine 0-2 /hpf (0-2); Specific Grav Ur 1.021 (1.001-1.035); Squamous Epithelial Cell Urine None Seen /hpf (Few); WBC Urine 0-5 /hpf (0-3)
[2024-01-16 07:50] LABS: Alanine Aminotransferase 24 U/L (6-50); Albumin Level 4.2 g/dL (3.5-5.1); Alkaline Phosphatase 82 U/L (38-126); Anion Gap 3 mmol/L (4-12); Aspartate Amino Transferase 31 U/L (17-59); Bilirubin,Total 1.1 mg/dL (0.2-1.3); Blood Urea Nitrogen 13 mg/dL (9-20); Calcium 9.1 mg/dL (8.4-10.2); Carbon Dioxide 32 mmol/L (22-30); Chloride 97 mmol/L (98-107); Estimated CRCL calculation 90 ml/min; Estimated Glomerular Filt Rate > 60; Glucose 123 mg/dL (65-110); Lipase 489 U/L (23-300); Potassium 4.4 mmol/L (3.4-5.0); Sodium 132 mmol/L (137-145)
[2024-01-16] MEDS: MORPHINE SULFATE (*CRX) 4 MG/ML INJ IV PUSH (09:31)
[2024-01-16] MEDS: MORPHINE SULFATE (*CRX) 2 MG/ML INJ IV PUSH ×4 (11:27→20:20)
[2024-01-16] MEDS: SODIUM CHLORIDE 0.9% IV 1,000 ML 125 ML IV CONT ×2 (11:28→20:21)
[2024-01-16] MEDS: ONDANSETRON INJ 4 MG/2 ML VIAL IV PUSH ×3 (11:28→20:20)
--- NOTE | 2024-01-16 12:35 | P.HP_ITS ---
H&P: HPI History of Present Illness Date/Time: 01/16/24 12:35 Chief Complaint: Abdominal pain. Narrative: This is a very pleasant 78-year-old male with history of myasthenia gravis, hypertension, hyperlipidemia, and benign prostatic hyperplasia who presented the emergency department via private vehicle for evaluation of abdominal pain. The patient provides the following history. About a week and a half ago he was seen in the emergency department with right-sided back and chest pain for which he was seen in the emergency department. It was felt that he had pleurisy and he was told to take acetaminophen and/or ibuprofen as needed for his symptoms. Though symptoms improved however over the last several days he has since developed pretty significant pain in the left upper quadrant which at times feels like a hot poker. It does not seem to radiate significantly. Associated symptoms include severe nausea but no vomiting and occasional sweats. He has tried Pepto-Bismol, activated charcoal tablets, Prilosec, and Dulcolax without benefit. He denies fever, chills, chest pain, pleuritic pain, shortness of breath, vomiting, and diarrhea. In the ED: He was afebrile on arrival. Blood pressures have been running in the 160s systolic. The remainder of his vital signs are stable. Labs were significant for WBC count of 13.7, sodium 132, chloride 97, carbon dioxide 32, glucose 123, lipase 489. CT of the abdomen and pelvis showed pancreatitis involving the head of the pancreas and fatty infiltration of the liver. He was given IV fluids and analgesics in the ED and he is being admitted in this setting for further treatment and evaluation. Review of Systems Review of Systems: 12 systems were reviewed and are negativ e except for as per HPI. [facility] Past Medical History Medical History Asthma Basal cell carcinoma Benign prostatic hyperplasia Hypertension Macular degeneration Myasthenia gravis (2018) Supraventricular tachycardia Surgical History Surgical History History of basal cell carcinoma excision (12/2023) History of cataract extraction with lens replacement (2023) History of tonsillectomy Family History Family History Father No problems noted. Grandparent Hypertension Mother Family history of Parkinson's disease Social History Social History (Updated 01/16/24 @ 20:59 by Maria Esther Majano PA-C) Social History: Surrogate medical decision maker: Linda Hallman, spouse. Code status: Full code. Smoking status: Former smoker Tobacco type: cigarettes Second hand tobacco smoke exposure: No Smoking end date: 01/15/74 Alcohol intake: current Drinks per week: 7 Alcohol use details: One glass a wine most nights of the week Substance use: never Substance use type: does not use Do You Feel Safe in your Home?: Yes Lack of Transportation: No Lack of Food: Never True Current Housing: I Have Housing Concerned About Future Housing: No Difficulty Paying Gas/Electric Bills: No Difficulty Paying for Meds: No Currently Unemployed: No Education: Don't Know Difficulty w/ Childcare or Family Care: No Spiritual care concerns: No Meds Home Medications and Allergies Home Medications Medication Instructions Recorded Confirmed Type potassium gluconate 595 mg (99 mg) 595 mg PO DAILY 02/09/19 01/16/24 History tablet vit C 250 mg-vit E 90 mg-zinc 40 1 tablet PO BID 02/09/19 01/16/24 History mg-copper 1 hr-uzqwjk-fjnlcy capsule (PreserVision AREDS-2) cholecalciferol (vitamin D3) 10 10 mcg PO DAILY 09/03/22 01/16/24 History mcg (400 unit) capsule magnesium oxide 400 mg PO DAILY 03/02/23 01/16/24 History vitamin B12 2,500 mcg-folic acid 1 tablet PO DAILY 03/02/23 01/16/24 History 400 mcg disintegrating tablet zinc gluconate 50 mg tablet 30 mg PO DAILY 03/02/23 01/16/24 History atorvastatin 10 mg tablet 10 mg PO QHS #90 tabs 05/03/23 01/16/24 Rx CPAP #1 unit 08/05/23 01/16/24 Rx finasteride 5 mg tablet 5 mg PO DAILY #90 tabs 08/19/23 01/16/24 Rx metoprolol succinate 25 mg 25 mg PO DAILY #90 tabs 08/19/23 01/16/24 Rx tablet,extended release 24 hr tamsulosin 0.4 mg capsule (Flomax) 0.8 mg PO DAILY #180 caps 10/05/23 01/16/24 Rx famotidine 40 mg tablet (Pepcid) 40 mg PO QHS #90 tabs 12/14/23 01/16/24 Rx ibuprofen 800 mg tablet 800 mg PO TID PRN pain 7 days #21 01/07/24 01/16/24 Rx tabs acetaminophen 500 mg tablet 1,000 mg PO TID PRN Pain, Mild 01/16/24 01/16/24 History fluticasone propionate 50 1 spray intranasal DAILY PRN 01/16/24 01/16/24 History mcg/actuation nasal Congestion spray,suspension Allergies Allergy/AdvReac Type Severity Reaction Status Date / Time No Known Allergies Allergy Verified 01/16/24 13:17 Vital Signs Vital Signs - 24 hr 01/16/24 07:16 01/16/24 08:16 01/16/24 09:48 Temperature 98.2 F Pulse Rate 76 66 71 Respiratory Rate 17 17 15 Blood Pressure 164/113 H 169/93 H 176/100 H Pulse Oximetry 97 97 96 Oxygen Delivery Room Air 01/16/24 11:32 Temperature Pulse Rate 69 Respiratory Rate 15 Blood Pressure 167/88 H Pulse Oximetry 98 Oxygen Delivery Exam Narrative: General: Well-developed, nontoxic-appearing male lying on his right side in bed. Weight: 150.5 kg. BMI: 33.6. HEENT: PERRL, EOMI. Perhaps mild drooping of the left eyelid. Sclera anicteric. Tacky mucous membranes. Neck: Supple. Respiratory: Lungs are clear to auscultation bilaterally. Cardiovascular: Regular rate and rhythm with S1-S2. Gastrointestinal: Abdomen is soft, obese, nondistended with positive bowel sounds. He is tender to palpation left upper quadrant. No voluntary guarding or rebound tenderness. Skin: Warm and dry. No rash or lesions on limited exam. Extremities: No cyanosis, clubbing, or edema. Radial and pedal pulses intact. Neurological: Alert. Cranial nerves 2-12 are grossly intact. No gross focal deficits to casual conversation. Psychiatric: Pleasant and cooperative with normal mood and affect. Judgment and insight intact. H&P: Results Labs Labs: Short CBC 01/16/24 Range/Units 07:33 WBC 13.7 H (4.5-10.0) K/mm3 Hgb 15.9 (14.0-18.0) g/dL Hct 46.2 (42.0-52.0) % Plt Count 242 (150-375) k/mm3 BMP 01/16/24 07:33 Sodium 132 L Potassium 4.4 Chloride 97 L Carbon Dioxide 32 H BUN 13 Creatinine 0.80 Glucose 123 H Calcium 9.1 Liver Function 01/16/24 Range/Units 07:33 Total Bilirubin 1.1 (0.2-1.3) mg/dL AST 31 (17-59) U/L ALT 24 (6-50) U/L Alkaline Phosphatase 82 (38-126) U/L Albumin 4.2 (3.5-5.1) g/dL Urine 01/16/24 Range/Units 07:30 Urine Color Yellow (Yellow) Urine Appearance Clear (Clear) Urine pH 8.0 (5.0-9.0) Ur Specific [place] 1.021 (1.001-1.035) Urine Protein 2+ H (Negative) mg/dL Urine Glucose (UA) Trace H (Negative) mg/dL Imaging Abdomen/Pelvis CT 01/16/24 08:30 IMPRESSION: 1. Pancreatitis involving the head of the pancreas. 2. Fat infiltration of the liver. 3. No evidence of appendicitis, diverticulitis or intestinal obstruction. Assessment and Plan Assessment and plan (1) Pancreatitis: Code(s): K85.90 - Acute pancreatitis without necrosis or infection, unspecified Status: Acute (2) Mild dehydration: Code(s): E86.0 - Dehydration Status: Acute (3) Benign prostatic hyperplasia: Code(s): N40.0 - Benign prostatic hyperplasia without lower urinary tract symptoms Status: Acute (4) Hypertension: Code(s): I10 - Essential (primary) hypertension Status: Acute (5) Obstructive sleep apnea: Code(s): G47.33 - Obstructive sleep apnea (adult) (pediatric) Status: Acute (6) Myasthenia gravis: Onset Date: 2017 Code(s): G70.00 - Myasthenia gravis without (acute) exacerbation Status: Acute Plan The patient presented to the emergency department for evaluation of left upper quadrant abdominal pain as detailed in HPI. Labs, imaging, EKG, and all reports were personally reviewed. Lipase is slightly elevated and CT scan shows pancreatitis at the head of the pancreas. Precipitating etiology is not entirely clear at this time. He drinks 1 glass of wine most nights and his triglyceride levels have been well within normal limits these last few years. Continue bowel rest for now and aggressive IV fluid rehydration. Analgesics and antiemetics are available as needed. Blood pressures were reviewed and they have been a bit high, likely due to pain. CPAP will be provided for the patient to use while hospitalized. He has mild drooping of the left eyelid but no other symptoms to suggest active myasthenia. Continue to monitor closely. His home medications will be reviewed and resumed as appropriate. Findings and treatment plan were discussed with the patient. Questions were solicited and answered to satisfaction. The patient's medical management will be taken over by the hospitalist team in a.m. Quality VTE Prophylaxis VTE prophylaxis: pharmacologic ordered The patient has been admitted under observation status. Hospitalist [facility] Advance Care Plan I have confirmed that the patient's Advanced Care Plan is present, code status is documented, or surrogate decision maker is listed in patient medical record.: Yes Medication Reconciliation I have utilized all available resources to obtain, update and review the patients current medications (includes all prescriptions, OTC, herbals, cannabis, and nutritional supplements).: Yes
--- NOTE | 2024-01-16 13:02 | ADMGEN ---
This patient, Joshua Hallman , was admitted to 3 Med Surg Room 307-01. Patient/family oriented to hospital policies and general routines including ID bracelet, bed and alarms, visiting hours, pain management, procedures, bathroom and other care routines, personal items, smoking policy, room service/diet, and visiting hours. Information on how to activate the Rapid Response Team has been discussed. Patient/Family are encouraged to report perceived risks to care and to ask questions if they do not understand what they are told or what they should do. Report from kyle in ER.
[2024-01-16] MEDS: ATORVASTATIN 10 MG TABLET PO (22:09)
[2024-01-16] MEDS: FAMOTIDINE 20 MG TABLET 40 MG PO (22:09)
[2024-01-17] MEDS: MORPHINE SULFATE (*CRX) 2 MG/ML INJ IV PUSH ×2 (00:07→14:01)
[2024-01-17 04:45] VITALS: BP 145/84; PULSE 81; RESP 18; TEMP 36.6; O2SAT 92
[2024-01-17 07:23] LABS: Hematocrit 44.9 % (42.0-52.0); Hemoglobin 15.2 g/dL (14.0-18.0); Mean Corpuscular HGB Conc 33.9 g/dl (32-36); Mean Corpuscular Volume 91.6 fl (80-100); Mean Platelet Volume 8.3 fl (7.4-10.4); Platelet Count Result 193 k/mm3 (150-375); Red Cell Distribution Width 13.1 % (11.5-14.5); White Blood Count 11.9 K/mm3 (4.5-10.0)
[2024-01-17 08:04] LABS: Alanine Aminotransferase 19 U/L (6-50); Albumin Level 3.4 g/dL (3.5-5.1); Alkaline Phosphatase 77 U/L (38-126); Anion Gap 1 mmol/L (4-12); Aspartate Amino Transferase 26 U/L (17-59); Bilirubin,Total 1.6 mg/dL (0.2-1.3); Blood Urea Nitrogen 13 mg/dL (9-20); Calcium 8.4 mg/dL (8.4-10.2); Carbon Dioxide 28 mmol/L (22-30); Chloride 102 mmol/L (98-107); Estimated CRCL calculation 81 ml/min; Estimated Glomerular Filt Rate > 60; Glucose 104 mg/dL (65-110); Lipase 309 U/L (23-300); Magnesium 2.2 mg/dL (1.6-2.3); Potassium 4.4 mmol/L (3.4-5.0); Sodium 131 mmol/L (137-145); Triglycerides 48 mg/dL (<150)
[2024-01-17] MEDS: FINASTERIDE 5 MG TABLET PO (08:19)
[2024-01-17] MEDS: TAMSULOSIN HCL 0.4 MG CAPSULE 0.8 MG PO (08:19)
[2024-01-17] MEDS: CYANOCOBALAMIN 1,000 MCG TABLET 2500 MCG PO (08:20)
[2024-01-17 08:22] VITALS: PULSE 69
[2024-01-17] MEDS: MAGNESIUM OXIDE 200 MG TABLET PO (08:22)
[2024-01-17] MEDS: OPTI-GEN TAB 1 TABLET PO (08:22)
[2024-01-17] MEDS: METOPROLOL SUCCINATE EXT REL 25 MG TABCR PO (08:22)
[2024-01-17] MEDS: FOLIC ACID 0.4 MG TABLET PO (08:22)
[2024-01-17] MEDS: ENOXAPARIN 40 MG/0.4 ML SYRINGE SUB-Q (08:24)
[2024-01-17] MEDS: CHOLECALCIFEROL 400 UNITS TABLET (VIT D) PO (10:45)
--- NOTE | 2024-01-17 10:55 | P.PNIM_ITS ---
Progress Note: A&P Assessment and Plan (1) Pancreatitis: Code(s): K85.90 - Acute pancreatitis without necrosis or infection, unspecified Status: Acute Assessment and Plan: * CT scan shows pancreatitis at the head of the pancreas. Precipitating etiology is not entirely clear at this time. He drinks 1 glass of wine most nights and his triglyceride levels have been well within normal limits these last few years. * NS @ 100 ml/hr * NPO, bowel rest * Pain control * Lipase 489>309 * WBC 13.7>11.9 * Monitor labs (2) Mild dehydration: Code(s): E86.0 - Dehydration Status: Acute Assessment and Plan: * NS @ 100 ml/hr (3) Benign prostatic hyperplasia: Code(s): N40.0 - Benign prostatic hyperplasia without lower urinary tract symptoms Status: Acute Assessment and Plan: * Tamsulosin 0.4 mg PO daily. (4) Hypertension: Code(s): I10 - Essential (primary) hypertension Status: Acute (5) Obstructive sleep apnea: Code(s): G47.33 - Obstructive sleep apnea (adult) (pediatric) Status: Acute Assessment and Plan: * CPAP (6) Myasthenia gravis: Onset Date: 2017 Code(s): G70.00 - Myasthenia gravis without (acute) exacerbation Status: Acute Assessment and Plan: * He has mild drooping of the left eyelid but no other symptoms to suggest active myasthenia. * Continue to monitor closely. Subjective Date/time seen: 01/17/24 10:55 Interval history: Patient reports that abdominal pain is a 5 , pain is frequent, and inflamed. Patient reports nausea. Patient denies shortness of breath, palpitations, headache, or dizziness. is at the bedside. Patient reports drinking one glass of wine most nights. Review of Systems Review of Systems: All systems reviewed & are unremarkable except as noted in HPI and below Exam Const: General: no acute distress and uncomfortable Eyes: Sclera: sclerae normal Resp: Effort & Inspection: normal respiratory effort Auscultation: clear to auscultation bilaterally Cardio: Rate: regular rate Rhythm: regular rhythm GI: GI Palp: Yes Soft to palpation and Yes Tenderness to palpation present (GI) (left upper quadrant) Auscultation: normal bowel sounds Skin: General skin exam: no rashes or lesions noted Neuro: Speech: normal speech Extrem: General: normal to inspection and no pedal edema Psych: Mental Status: mental status grossly normal Affect: normal affect Objective Data Vital Signs Vital Signs: Vital Signs - 24 hr 01/16/24 11:32 01/16/24 14:00 01/16/24 17:41 Temperature 98.1 F Pulse Rate 69 74 Respiratory Rate 15 18 Blood Pressure 167/88 H 181/103 H 162/94 H Pulse Oximetry 98 92 Oxygen Delivery 01/16/24 20:00 01/16/24 20:30 01/17/24 04:45 Temperature 96.8 F L 97.8 F Pulse Rate 75 81 Respiratory Rate 18 18 Blood Pressure 157/95 H 145/84 H Pulse Oximetry 94 92 Oxygen Delivery Room Air 01/17/24 08:22 01/17/24 08:33 Temperature Pulse Rate 69 Respiratory Rate Blood Pressure Pulse Oximetry Oxygen Delivery Room Air Intake/Output Intake/Output: Intake & Output 01/14/24 01/15/24 01/16/24 01/17/24 23:59 23:59 23:59 23:59 Intake Total 1000 300 Output Total 150 1200 Balance 850 -900 Meds/Results Medications: Active Medications Generic Name Dose Route Start Last Admin Trade Name Freq PRN Reason Stop Dose Admin Atorvastatin Calcium 10 mg 01/16/24 21:25 01/16/24 22:09 Atorvastatin 10 Mg Tablet PO 10 mg QHS ERINN Administration Cyanocobalamin 2,500 mcg 01/17/24 09:00 01/17/24 08:20 Cyanocobalamin 1,000 Mcg Tablet PO 2,500 mcg QAM ERINN Administration Enoxaparin Sodium 40 mg 01/17/24 09:00 01/17/24 08:24 Enoxaparin 40 Mg/0.4 Ml Syringe SUB-Q 40 mg DAILY ERINN Administration Famotidine 40 mg 01/16/24 21:25 01/16/24 22:09 Famotidine 20 Mg Tablet PO 40 mg QHS ERINN Administration Finasteride 5 mg 01/17/24 09:00 01/17/24 08:19 Finasteride 5 Mg Tablet PO 5 mg DAILY ERINN Administration Fluticasone Propionate 1 spray 01/16/24 21:05 Fluticasone Propionate 0.05% Na Spr 16 Gm Btl (*Bkc) NASAL DAILY PRN Congestion Folic Acid 0.4 mg 01/17/24 09:00 01/17/24 08:22 Folic Acid 0.4 Mg Tablet PO 0.4 mg QAM ERINN Administration Sodium Chloride 1,000 mls @ 125 mls/hr 01/16/24 10:25 01/16/24 20:21 Normal Saline Iv IV CONT 125 mls/hr .Q8H ERINN Administration Magnesium Oxide 200 mg 01/17/24 09:00 01/17/24 08:22 Magnesium Oxide 200 Mg Tablet PO 200 mg DAILY ERINN Administration Metoprolol Succinate 25 mg 01/17/24 09:00 01/17/24 08:22 Metoprolol Succinate Ext Rel 25 Mg Tabcr PO 25 mg DAILY ERINN Administration Morphine Sulfate 2 mg 01/16/24 10:22 01/17/24 00:07 Morphine Sulfate (*Crx) 2 Mg/Ml Inj IV PUSH 2 mg Q2H PRN Administration Pain Rated 7-10 Multivitamins/Minerals 1 tablet 01/17/24 09:00 01/17/24 08:22 Opti-Gen Tab PO 1 tablet QAM ERINN Administration Ondansetron HCl 4 mg 01/16/24 10:22 01/16/24 20:20 Ondansetron Inj 4 Mg/2 Ml Vial IV PUSH 4 mg Q4H PRN Administration Nausea Tamsulosin HCl 0.8 mg 01/17/24 10:53 Tamsulosin Hcl 0.4 Mg Capsule PO DAILY [facility] Vitamin D 400 units 01/17/24 09:00 01/17/24 10:45 Cholecalciferol 400 Units Tablet (Vit D) PO 400 units DAILY ERINN Administration Radiology Results: ITS Impressions Abdomen/Pelvis CT 01/16/24 08:30 IMPRESSION: 1. Pancreatitis involving the head of the pancreas. 2. Fat infiltration of the liver. 3. No evidence of appendicitis, diverticulitis or intestinal obstruction. Labs Labs: Laboratory Results - last 24 hr 01/17/24 06:38 WBC 11.9 H RBC 4.90 Hgb 15.2 Hct 44.9 MCV 91.6 MCH 31.0 MCHC 33.9 RDW 13.1 Plt Count 193 MPV 8.3 Sodium 131 L Potassium 4.4 Chloride 102 Carbon Dioxide 28 Anion Gap 1 L BUN 13 Creatinine 0.90 Estim Creat Clear Calc 81 Estimated GFR > 60 Glucose 104 Calcium 8.4 Magnesium 2.2 Total Bilirubin 1.6 H AST 26 ALT 19 Alkaline Phosphatase 77 Total Protein 7.0 Albumin 3.4 L Triglycerides 48 Lipase 309 H Quality VTE Prophylaxis VTE prophylaxis: pharmacologic ordered
[2024-01-17 14:46] VITALS: BP 139/61; PULSE 64; RESP 16; TEMP 37.8; O2SAT 94
[2024-01-17] MEDS: SODIUM CHLORIDE 0.9% IV 1,000 ML 125 ML IV CONT (15:06)
[2024-01-17 20:00] VITALS: PULSE 68; RESP 18; O2SAT 95
[2024-01-17 20:10] VITALS: BP 141/78; PULSE 68; RESP 18; TEMP 36.3; O2SAT 95
[2024-01-17] MEDS: ATORVASTATIN 10 MG TABLET PO (20:34)
[2024-01-17] MEDS: FAMOTIDINE 20 MG TABLET 40 MG PO (20:34)
[2024-01-18] VITALS (7 sets, daily range): BP systolic 140–161; BP diastolic 77–84; PULSE 63–71; RESP 16–18; TEMP 36.3–37.2; O2SAT 95–97
[2024-01-18] MEDS: SODIUM CHLORIDE 0.9% IV 1,000 ML 125 ML IV CONT ×3 (00:58→17:59)
[2024-01-18] MEDS: MORPHINE SULFATE (*CRX) 2 MG/ML INJ IV PUSH (03:36)
[2024-01-18 06:57] LABS: Basophils Percent Auto 0.5 % (0.2-1.2); Eosinophils Absolute Auto 0.2 K/mm3 (0-0.3); Eosinophils Percent Auto 2.5 % (0-4.4); Hematocrit 40.9 % (42.0-52.0); Hemoglobin 13.5 g/dL (14.0-18.0); Immature Granulocyte Absolute 0.04 K/mm3 (0.00-0.031); Immature Granulocyte Percent A 0.5 % (0-0.5); Lymphocytes Absolute Auto 1.29 K/mm3 (0.9-3.2); Lymphocytes Percent Auto 17.2 % (18.3-44.2); Mean Corpuscular Hemoglobin 30.7 pg (26-34); Mean Platelet Volume 8.9 fl (7.4-10.4); Monocytes Absolute Auto 1.2 K/mm3 (0.1-0.6); Monocytes Percent Auto 15.5 % (2.6-8.5); Neutrophils Absolute Auto 4.8 K/mm3 (1.3-6.7); Neutrophils Percent Auto 63.8 % (45.5-73.1); Platelet Count Result 196 k/mm3 (150-375); Red Cell Distribution Width 12.8 % (11.5-14.5); White Blood Count 7.5 K/mm3 (4.5-10.0)
[2024-01-18 07:29] LABS: Alanine Aminotransferase 18 U/L (6-50); Albumin Level 3.1 g/dL (3.5-5.1); Alkaline Phosphatase 70 U/L (38-126); Anion Gap 2 mmol/L (4-12); Aspartate Amino Transferase 23 U/L (17-59); Bilirubin,Total 1.2 mg/dL (0.2-1.3); Blood Urea Nitrogen 16 mg/dL (9-20); Calcium 7.9 mg/dL (8.4-10.2); Carbon Dioxide 26 mmol/L (22-30); Chloride 105 mmol/L (98-107); Estimated CRCL calculation 81 ml/min; Estimated Glomerular Filt Rate > 60; Glucose 92 mg/dL (65-110); Lipase 125 U/L (23-300); Potassium 4.2 mmol/L (3.4-5.0); Sodium 133 mmol/L (137-145)
[2024-01-18] MEDS: TAMSULOSIN HCL 0.4 MG CAPSULE PO (08:45)
[2024-01-18] MEDS: METOPROLOL SUCCINATE EXT REL 25 MG TABCR PO (08:45)
[2024-01-18] MEDS: FINASTERIDE 5 MG TABLET PO (08:45)
[2024-01-18] MEDS: ENOXAPARIN 40 MG/0.4 ML SYRINGE SUB-Q (09:49)
--- NOTE | 2024-01-18 15:18 | PM.IMPN ---
Progress Note: A&P Assessment and Plan (1) Pancreatitis: Code(s): K85.90 - Acute pancreatitis without necrosis or infection, unspecified Status: Acute Assessment and Plan: CT scan shows pancreatitis at the head of the pancreas. Precipitating etiology is not entirely clear at this time. He drinks 1 glass of wine most nights and his triglyceride levels have been well within normal limits these last few years. NS @ 100 ml/hr Currently on clear liquid diet and tolerating well. Pain control Lipase 489>309>>125 WBC 13.7>11.9>>7.5 Continue to advance diet as tolerated. (2) Mild dehydration: Code(s): E86.0 - Dehydration Status: Acute Assessment and Plan: Much improving. Likely pre-renal secondary to poor PO intake. NS @ 100 ml/hr (3) Benign prostatic hyperplasia: Code(s): N40.0 - Benign prostatic hyperplasia without lower urinary tract symptoms Status: Acute Assessment and Plan: Tamsulosin 0.4 mg PO daily. (4) Hypertension: Code(s): I10 - Essential (primary) hypertension Status: Acute Assessment and Plan: BP trending high. Lisinopril started. Continue to adjust meds as needed. (5) Obstructive sleep apnea: Code(s): G47.33 - Obstructive sleep apnea (adult) (pediatric) Status: Acute Assessment and Plan: CPAP with sleep. (6) Myasthenia gravis: Onset Date: 2017 Code(s): G70.00 - Myasthenia gravis without (acute) exacerbation Status: Acute Assessment and Plan: He has mild drooping of the left eyelid but no other symptoms to suggest active myasthenia. Continue to monitor closely. Plan Continue to adjust diet as tolerated. Pain meds PRN. Time Spent With Patient Time with patient: 15 - 25 minutes Subjective Date/time seen: 01/18/24 11:18 Patient states he's feeling better and tolerating clear liquids well for now with no GI distress. Interval history: Patient calm on bedrest and looks to be in no acute distress. Review of Systems Review of Systems: 12 systems were reviewed and are negative except for as per HPI. All systems reviewed & are unremarkable except as noted in HPI and below Exam Narrative: General: Well-developed, appears to be in no acute distress. HEENT: PERRL, EOMI, moist mucosa, anicteric. Neck: Supple. Respiratory: Lungs clear bilaterally. Cardiovascular: Regular rate and rhythm with S1-S2. Gastrointestinal: Abdomen is soft, obese, nondistended with positive bowel sounds. Skin: Warm and dry. No rash or lesions on limited exam. Extremities: No cyanosis, clubbing, or edema. Radial and pedal pulses intact. Neurological: Alert. Cranial nerves 2-12 are grossly intact. No gross focal deficits to casual conversation. Psychiatric: Pleasant and cooperative with normal mood and affect. Objective Data Vital Signs Vital Signs: Vital Signs - 24 hr 01/17/24 20:00 01/17/24 20:10 01/18/24 04:30 Temperature 97.3 F L 98.9 F Pulse Rate 68 68 71 Respiratory Rate 18 18 18 Blood Pressure 141/78 H 145/77 H Pulse Oximetry 95 95 95 Oxygen Delivery Room Air 01/18/24 08:00 01/18/24 08:00 01/18/24 08:45 Temperature 98.0 F Pulse Rate 67 66 Respiratory Rate 16 Blood Pressure 140/79 Pulse Oximetry 97 Oxygen Delivery Room Air 01/18/24 08:45 01/18/24 10:11 01/18/24 13:51 Temperature 97.4 F L Pulse Rate 66 63 Respiratory Rate 18 Blood Pressure 142/84 H 161/79 H Pulse Oximetry 95 97 Oxygen Delivery Room Air Intake/Output Intake/Output: Intake & Output 01/15/24 01/16/24 01/17/24 01/18/24 23:59 23:59 23:59 23:59 Intake Total 1000 2300 1480 Output Total 150 1200 850 Balance 850 1100 630 Meds/Results Medications: Active Medications Generic Name Dose Route Start Last Admin Trade Name Freq PRN Reason Stop Dose Admin Atorvastatin Calcium 10 mg 01/16/24 21:25 01/17/24 20:34 Atorvastatin 10 Mg Tablet PO 10 mg QHS ERINN Administration Cyanocobalamin 2,500 mcg 01/17/24 09:00 01/18/24 09:48 Cyanocobalamin 1,000 Mcg Tablet PO Not Given QAM ERINN Enoxaparin Sodium 40 mg 01/17/24 09:00 01/18/24 09:49 Enoxaparin 40 Mg/0.4 Ml Syringe SUB-Q 40 mg DAILY ERINN Administration Famotidine 40 mg 01/16/24 21:25 01/17/24 20:34 Famotidine 20 Mg Tablet PO 40 mg QHS [facility] Administration Finasteride 5 mg 01/17/24 09:00 01/18/24 08:45 Finasteride 5 Mg Tablet PO 5 mg DAILY [facility] Administration Fluticasone Propionate 1 spray 01/16/24 21:05 Fluticasone Propionate 0.05% Na Spr 16 Gm Btl (*Bkc) NASAL DAILY PRN Congestion Folic Acid 0.4 mg 01/17/24 09:00 01/18/24 09:48 Folic Acid 0.4 Mg Tablet PO Not Given QAM [facility] Sodium Chloride 1,000 mls @ 125 mls/hr 01/16/24 10:25 01/18/24 09:20 Normal Saline Iv IV CONT 125 mls/hr .Q8H [facility] Administration Magnesium Oxide 200 mg 01/17/24 09:00 01/18/24 09:48 Magnesium Oxide 200 Mg Tablet PO Not Given DAILY [facility] Metoprolol Succinate 25 mg 01/17/24 09:00 01/18/24 08:45 Metoprolol Succinate Ext Rel 25 Mg Tabcr PO 25 mg DAILY [facility] Administration Morphine Sulfate 2 mg 01/16/24 10:22 01/18/24 03:36 Morphine Sulfate (*Crx) 2 Mg/Ml Inj IV PUSH 2 mg Q2H PRN Administration Pain Rated 7-10 Multivitamins/Minerals 1 tablet 01/17/24 09:00 01/18/24 09:48 Opti-Gen Tab PO Not Given QAM [facility] Ondansetron HCl 4 mg 01/16/24 10:22 01/16/24 20:20 Ondansetron Inj 4 Mg/2 Ml Vial IV PUSH 4 mg Q4H PRN Administration Nausea Tamsulosin HCl 0.4 mg 01/18/24 09:00 01/18/24 08:45 Tamsulosin Hcl 0.4 Mg Capsule PO 0.4 mg DAILY [facility] Administration Vitamin D 400 units 01/17/24 09:00 01/18/24 09:48 Cholecalciferol 400 Units Tablet (Vit D) PO Not Given DAILY [facility] Radiology Results: ITS Impressions Abdomen/Pelvis CT 01/16/24 08:30 IMPRESSION: 1. Pancreatitis involving the head of the pancreas. 2. Fat infiltration of the liver. 3. No evidence of appendicitis, diverticulitis or intestinal obstruction. Labs Labs: Laboratory Results - last 24 hr 01/18/24 06:19 WBC 7.5 RBC 4.40 L Hgb 13.5 L Hct 40.9 L MCV 93.0 MCH 30.7 MCHC 33.0 RDW 12.8 Plt Count 196 MPV 8.9 Immature Gran % (Auto) 0.5 Neut % (Auto) 63.8 Lymph % (Auto) 17.2 L [place] % (Auto) 15.5 H Eos % (Auto) 2.5 Baso % (Auto) 0.5 Lymph # (Auto) 1.29 [place] # (Auto) 1.2 H Eos # (Auto) 0.2 Baso # (Auto) 0.0 Abs Immat Gran (auto) 0.04 H Absolute Neuts (auto) 4.8 Absolute Nucleated RBC 0.000 Nucleated RBC % 0.0 Sodium 133 L Potassium 4.2 Chloride 105 Carbon Dioxide 26 Anion Gap 2 L BUN 16 Creatinine 0.90 Estim Creat Clear Calc 81 Estimated GFR > 60 Glucose 92 Calcium 7.9 L Total Bilirubin 1.2 AST 23 ALT 18 Alkaline Phosphatase 70 Total Protein 6.0 L Albumin 3.1 L Lipase 125 Quality VTE Prophylaxis VTE prophylaxis: pharmacologic ordered Hospitalist [facility] Advance Care Plan I have confirmed that the patient's Advanced Care Plan is present, code status is documented, or surrogate decision maker is listed in patient medical record.: Yes Medication Reconciliation I have utilized all available resources to obtain, update and review the patients current medications (includes all prescriptions, OTC, herbals, cannabis, and nutritional supplements).: Yes
--- NOTE | 2024-01-18 15:34 | PC.NURSE ---
Ana Ivey [employer]PER[employer] notified of 1523 that 1200 Novolog insulin not given blood glucose was 338. Told to go ahead and give insulin.
[2024-01-18] MEDS: ATORVASTATIN 10 MG TABLET PO (20:37)
[2024-01-18] MEDS: FAMOTIDINE 20 MG TABLET 40 MG PO (20:37)
[2024-01-19 06:00] VITALS: BP 130/70; PULSE 69; RESP 18; TEMP 36.4; O2SAT 95
[2024-01-19 07:26] LABS: Basophils Percent Auto 0.4 % (0.2-1.2); Eosinophils Absolute Auto 0.2 K/mm3 (0-0.3); Eosinophils Percent Auto 2.8 % (0-4.4); Hematocrit 40.3 % (42.0-52.0); Hemoglobin 13.7 g/dL (14.0-18.0); Immature Granulocyte Absolute 0.04 K/mm3 (0.00-0.031); Immature Granulocyte Percent A 0.6 % (0-0.5); Mean Corpuscular Hemoglobin 30.8 pg (26-34); Mean Corpuscular Volume 90.6 fl (80-100); Mean Platelet Volume 8.3 fl (7.4-10.4); Monocytes Percent Auto 14.2 % (2.6-8.5); Neutrophils Absolute Auto 3.9 K/mm3 (1.3-6.7); Platelet Count Result 197 k/mm3 (150-375); Red Blood Count 4.45 M/mm3 (4.6-6.20); Red Cell Distribution Width 12.6 % (11.5-14.5); White Blood Count 6.7 K/mm3 (4.5-10.0)
[2024-01-19 07:38] LABS: Alanine Aminotransferase 22 U/L (6-50); Alkaline Phosphatase 68 U/L (38-126); Anion Gap 3 mmol/L (4-12); Aspartate Amino Transferase 27 U/L (17-59); Bilirubin,Total 0.8 mg/dL (0.2-1.3); Blood Urea Nitrogen 15 mg/dL (9-20); Calcium 8.1 mg/dL (8.4-10.2); Carbon Dioxide 25 mmol/L (22-30); Chloride 106 mmol/L (98-107); Estimated CRCL calculation 90 ml/min; Estimated Glomerular Filt Rate > 60; Glucose 94 mg/dL (65-110); Lipase 123 U/L (23-300); Sodium 134 mmol/L (137-145)
[2024-01-19 09:04] VITALS: PULSE 62
[2024-01-19] MEDS: METOPROLOL SUCCINATE EXT REL 25 MG TABCR PO (09:04)
[2024-01-19] MEDS: MAGNESIUM OXIDE 200 MG TABLET PO (09:04)
[2024-01-19] MEDS: CHOLECALCIFEROL 400 UNITS TABLET (VIT D) PO (09:04)
[2024-01-19] MEDS: FINASTERIDE 5 MG TABLET PO (09:04)
[2024-01-19] MEDS: CYANOCOBALAMIN 1,000 MCG TABLET 2500 MCG PO (09:04)
[2024-01-19] MEDS: OPTI-GEN TAB 1 TABLET PO (09:04)
[2024-01-19] MEDS: ENOXAPARIN 40 MG/0.4 ML SYRINGE SUB-Q (09:05)
[2024-01-19] MEDS: FOLIC ACID 0.4 MG TABLET PO (09:05)
[2024-01-19] MEDS: TAMSULOSIN HCL 0.4 MG CAPSULE PO (09:05)
--- NOTE | 2024-01-19 12:21 | P.DS_ITS ---
DS: Admitting Diagnosis Discharge Date 01/19/24 Admitting Diagnosis Abdominal Pain DS: Discharge Diagnosis Discharge Diagnosis (1) Pancreatitis: Code(s): K85.90 - Acute pancreatitis without necrosis or infection, unspecified Status: Acute Assessment and Plan: * CT scan shows pancreatitis at the head of the pancreas. Precipitating etiology is not entirely clear at this time. He drinks 1 glass of wine nightly and his triglyceride levels have been well within normal limits these last few years. * NS @ 100 ml/hr * Tolerating low-fat diet well currently. * Pain resolved. * Lipase 489>309>>125 * WBC 13.7>11.9>>7.5 (2) Mild dehydration: Code(s): E86.0 - Dehydration Status: Acute Assessment and Plan: * Much improving. * Likely pre-renal secondary to poor PO intake. * NS @ 100 ml/hr (3) Benign prostatic hyperplasia: Code(s): N40.0 - Benign prostatic hyperplasia without lower urinary tract symptoms Status: Acute Assessment and Plan: * Tamsulosin 0.4 mg PO daily. (4) Hypertension: Code(s): I10 - Essential (primary) hypertension Status: Acute Assessment and Plan: Lisinopril started inpatient. BP currently well controlled. (5) Obstructive sleep apnea: Code(s): G47.33 - Obstructive sleep apnea (adult) (pediatric) Status: Acute Assessment and Plan: * CPAP with sleep. (6) Myasthenia gravis: Onset Date: 2017 Code(s): G70.00 - Myasthenia gravis without (acute) exacerbation Status: Acute Assessment and Plan: * He has mild drooping of the left eyelid but no other symptoms to suggest acti ve myasthenia. * Continue outpatient f/u with neurologist and PCP. Plan Discharge Home. DS: Summary Hospital Course Reason for hospitalization: Abdominal Pain Hospital Course: Patient presented with abdominal pain, mainly to his LUQ. In the ER he was noted with elevated Lipase and CT of the abdomen and pelvis showed pancreatitis involving the head of the pancreas and fatty infiltration of the liver. He was placed NPO and hydrated with IV fluids, with pain and nausea meds given PRN. He was gradually started on diet, and currently he's tolerating low-fat diet well, with no pain or any GI distress. Patient wants to go home today and states his symptoms have resolved. Patient has been educated on pancreatitis and encouraged with alcohol cessation and low fat diet. Patient is medically stable for discharge with no acute distress noted or reported prior to discharge. Status at Discharge Functional status at discharge: independent ambulation Overall status at discharge: patient is progressing back to baseline Time Spent with Patient Time attestation: Total time spent providing and/or coordinating discharge services: Time spent: Greater than 30 minutes Exam Narrative: General: Well-developed, in no acute distress. HEENT: PERRL, EOMI, moist mucosa, anicteric. Neck: Supple. Respiratory: Lungs clear bilaterally. Cardiovascular: Regular rate and rhythm, no murmurs. Gastrointestinal: Abdomen is soft, obese, nondistended with positive bowel sounds. Skin: Warm and dry. No rash or lesions on limited exam. Extremities: No cyanosis, clubbing, or edema. Radial and pedal pulses intact. Neurological: Alert and well oriented. Cranial nerves 2-12 are grossly intact. Psychiatric: Pleasant and cooperative with normal mood and affect. DS: Data Data Completed and Pending Labs on day of discharge: Labs from last 24 hours 01/19/24 06:54 WBC 6.7 RBC 4.45 L Hgb 13.7 L Hct 40.3 L MCV 90.6 MCH 30.8 MCHC 34.0 RDW 12.6 Plt Count 197 MPV 8.3 Immature Gran % (Auto) 0.6 H Neut % (Auto) 58.0 Lymph % (Auto) 24.0 [place] % (Auto) 14.2 H Eos % (Auto) 2.8 Baso % (Auto) 0.4 Lymph # (Auto) 1.60 [place] # (Auto) 1.0 H Eos # (Auto) 0.2 Baso # (Auto) 0.0 Abs Immat Gran (auto) 0.04 H Absolute Neuts (auto) 3.9 Absolute Nucleated RBC 0.000 Nucleated RBC % 0.0 Sodium 134 L Potassium 4.0 Chloride 106 Carbon Dioxide 25 Anion Gap 3 L BUN 15 Creatinine 0.80 Estim Creat Clear Calc 90 Estimated GFR > 60 Glucose 94 Calcium 8.1 L Total Bilirubin 0.8 AST 27 ALT 22 Alkaline Phosphatase 68 Total Protein 6.0 L Albumin 3.0 L Lipase 123 Discharge Plan Discharge Attending physician on discharge: Margot Rivas Discharging Clinician: Oghina,Okeyo J. Anticipated Discharge Date/Time: 01/19/24 12:37 Patient Disposition: Home, Self-Care Activity: as tolerated Diet: heart healthy and low cholesterol Patient Instructions: Antibiotic Form Patient Language: Albanian Stand Alone Forms: General Discharge Information Follow-up/Referrals: Abdirashid Hunter MD [Primary Care Provider] - 1 Week Discharge Medications: New lisinopril 20 mg Tablet 20 mg PO QAM Qty: 30 0RF Continued cholecalciferol (vitamin D3) 10 mcg (400 unit) capsule 10 mcg PO DAILY vitamin [id number] acid 2,500-400 mcg tablet,disintegrating 1 tablet PO DAILY famotidine [Pepcid] 40 mg tablet 40 mg PO QHS Qty: 90 1RF potassium gluconate 595 mg (99 mg) Tablet 595 mg PO DAILY PreserVision AREDS-2 [id number] Capsule 1 tablet PO BID magnesium oxide 250 mg magnesium tablet 400 mg PO DAILY zinc gluconate 50 mg tablet 30 mg PO DAILY ibuprofen 800 mg tablet 800 mg PO TID PRN (Reason: pain) 7 Days Qty: 21 0RF acetaminophen 500 mg tablet 1,000 mg PO TID PRN (Reason: Pain, Mild) fluticasone propionate 50 mcg/actuation spray,suspension 1 spray NASAL DAILY PRN (Reason: Congestion) tamsulosin [Flomax] 0.4 mg capsule 0.4 mg PO DAILY atorvastatin 10 mg tablet 10 mg PO QHS Qty: 90 1RF (DME) CPAP See Rx Instructions .Route .MEDSUPPLY Qty: 1 0RF Rx Instructions: CPAP 17 cm using the large ResMed AirTouch F20 fullface mask and heated humidity finasteride 5 mg tablet 5 mg PO DAILY Qty: 90 1RF metoprolol succinate 25 mg tablet extended release 24 hr 25 mg PO DAILY Qty: 90 1RF Date of admission: 01/16/24 14:28 Primary Care Provider: Abdirashid Hunter Admitting Provider: Delonte Damico Attending physician on admission: Delonte Damico Condition: Stable Quality If No VTE Prophylaxis Answer both mechanical and pharmacologic: Reason no mechanical VTE proph: low risk/not indicated Reason no pharmacologic proph: low risk/not indicated Hospitalist MIPS Heart Failure (Exclusion) Patient has history of Heart Transplant or Left Ventricular Assistive Device?: No IF YES, STOP HERE Heart Failure (Qualifier) Patient has current or prior documentation of LVEF less than or equal to 40%, or mod/servere depressed LVSF?: No IF NO, STOP HERE
== END 2024-01-19 13:20 | disposition home or self-care (01) | DRG 440 ==
LOC: ANHED 07:51 → ANH3MEDSUR 11:35
PROVIDERS: Nurse Practitioner Family; Physician Assistant; Admitting Provider Internal Medicine; Emergency Provider Emergency Medicine; PCP Family Medicine; Visit Provider Nurse Practitioner Adult Health
DX: K85.90 Acute pancreatitis without necrosis or infection, unspecified (principal); E86.0 Dehydration; N40.0 Benign prostatic hyperplasia without lower urinary tract symptoms; I10 Essential (primary) hypertension; G47.33 Obstructive sleep apnea (adult) (pediatric); G70.00 Myasthenia gravis without (acute) exacerbation; E78.5 Hyperlipidemia, unspecified; H35.30 Unspecified macular degeneration; J45.909 Unspecified asthma, uncomplicated; Z85.828 Personal history of other malignant neoplasm of skin; Z87.891 Personal history of nicotine dependence
CPT/HCPCS: 36415; 74177; 80053; 81001; 83690; 83735; 84478; 85025; 85027; 96361; 96374; 96375; 96376; 99285; A9270; G0378; J1650; J2270; J2405; J7030; Q9967

== ENCOUNTER 2024-02-15 06:47 | Outpatient (CLI) | payer MEDICARE, SELFPAY ==
--- NOTE | ~2024-02-15 | MR_ITS ---
EXAMINATION: MR abdomen wo/w con DATE: 02/15/2024 07:58 INDICATION: Pancreatitis. TECHNIQUE: Magnetic resonance imaging (MRI) of the abdomen was performed without and with 20 mL Multi He intravenous contrast. COMPARISON: CT abdomen and pelvis 01/16/2024 FINDINGS: There is diffuse hepatic steatosis. There is mild fat stranding adjacent to the head of the pancreas with interval improvement. The gallbladder, spleen, adrenal glands are normal. There are cysts in the kidneys measuring up to 2.4 cm on the left. There are no dilated loops of bowel. There are diverticu la of the duodenum. There are no pathologically enlarged lymph nodes. There is no free intraperitonea l fluid. There is a 3.5 cm fusiform aneurysm of infrarenal aorta. There is a 2.3 x 1.7 cm left para-a ortic mass with delayed hyperenhancement and punctate calcifications on the prior CT. IMPRESSION: 1. Acute interstitial pancreatitis with interval improvement. 2. Diffuse hepatic steatosis. 3. 3.5 cm fusiform aneurysm of infrarenal aorta. 4. 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 Consider PET/CT or 3-6 month foll ow-up abdomen CT to exclude neoplasm. Reviewed, dictated and finalized at location A. NSING ANALYST IMPRESSION: 1. Acute interstitial pancreatitis with interval improvement. 2. Diffuse hepatic steatosis. 3. 3.5 cm fusiform aneurysm of infrarenal aorta. 4. 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 Consider PE T/CT or 3-6 month follow-up abdomen CT to exclude neoplasm.
== END 2024-02-15 06:48 | disposition home or self-care (01) ==
PROVIDERS: PCP Family Medicine; Visit Provider Family Medicine
DX: K85.80 Other acute pancreatitis without necrosis or infection (principal); K76.0 Fatty (change of) liver, not elsewhere classified; I71.43 Infrarenal abdominal aortic aneurysm, without rupture; R19.02 Left upper quadrant abdominal swelling, mass and lump
CPT/HCPCS: 74183

== ENCOUNTER 2024-03-19 12:30 | Outpatient (RCR) | payer MEDICARE, SELFPAY ==
--- NOTE | 2024-01-03 11:05 | OPREHPOC ---
Outpatient Therapy Plan of Care This is a Multidisciplinary Plan of Care that may contain components documented by all disciplines (PT, OT, and ST.) PT Problem 1 PT Problem #1 Knowledge Deficit PT Goal 1 Goal / Goal Update 1. Patient will perform independent HEP Target Visit 4 PT Problem 2 PT Problem #2 Pain PT Goal 1 Goal / Goal Update 1. Patient able to do all household activities with pain no higher than 2/10 Target Visit 10 PT Problem 3 PT Problem #3 Impaired Strength PT Goal 1 Goal / Goal Update 1. LE MMT 5/5 and pain free in all planes for function at home Target Visit 10 PT Problem 4 PT Problem #4 Impaired Range of Motion PT Goal 1 Goal / Goal Update 1. Lumbar ROM full and pain free in all planes in order to do yard work Target Visit 10 PT Problem 5 PT Problem #5 Impaired Functional ADLs PT Goal 1 Goal / Goal Update 1. Patient will ambulate without walker for at least 2 weeks Target Visit 10
--- NOTE | 2024-01-03 11:05 | PTOPEVAL1 ---
Assessment and note entered by Deirdre Van DPT Evaluation Information Assessment Status Evaluation ICD-10 Condition Codes (PT) Pain in low back M54.50,Weakness R53.1 Subjective Information Pt reports a history of intermittent LBP but recent exacerbation started last week after raking a lot of leaves. Difficulty getting out of bed. Highest pain recently 10/10 and lowest 2/10. Denies n/t, slight radiation into R glute and pain seems to be more to R in low back as well. Is currently walking with a walker but previously was not using one. Was previously active and exercising 3 times a week, previously independent with all activities. is assisting with donning shoes and socks at this point and patient has not done any kind of cooking or cleaning. Pt has not driven since pain increased last week. Patient goal: have my back stop hurting Return to MD is not currently scheduled. Reported Pain Level Pain Score 2: Self Report Assessment PT Clinical Summary The patient is presenting to skilled therapy with a recent exacerbation of LBP. He presents with decreased strength and range of motion in all planes which are contributing to his pain and difficulty with most activities including dressing independently. He is currently using a walker. He will benefit from skilled therapy to address his impairments in order to reduce pain and restore full function. Plan of Care Interventions Electrical Stimulation,Gait Training,Hot Pack/Cold Pack,Manual Therapy,Mechanical Traction,Neuro Re- education,Patient/Caregiver Education,Therapeutic Activities,Therapeutic Exercise PT Services Indicated Yes Treatment Frequency and 1-2 times a week for 10 visits Duration These treatments will address the objective and functional deficits as defined above. The patient will be advanced safely and appropriately in order for the patient to progress towards his/her prior level of function. Additional exercises will be introduced and as well as a comprehensive home exercise program upon discharge, if needed, ?to ensure carryover of functional gains achieved in the clinic. This treatment plan has been reviewed and agreement upon by the patient.
--- NOTE | 2024-02-14 14:57 | PCPTNOTE ---
02-13-24 treatment was canceled due to weather/snow.
--- NOTE | 2024-02-20 09:47 | OPREHPOC ---
Outpatient Therapy Plan of Care This is a Multidisciplinary Plan of Care that may contain components documented by all disciplines (PT, OT, and ST.) PT Problem 1 PT Problem #1 Knowledge Deficit PT Goal 1 Goal / Goal Update 1. Patient will perform independent HEP Target Visit 4 Progress Met PT Problem 2 PT Problem #2 Pain PT Goal 1 Goal / Goal Update 1. Patient able to do all household activities with pain no higher than 2/10 Target Visit 18 Progress Partially Met PT Problem 3 PT Problem #3 Impaired Strength PT Goal 1 Goal / Goal Update 1. LE MMT 5/5 and pain free in all planes for function at home Target Visit 18 Progress Partially Met PT Problem 4 PT Problem #4 Impaired Range of Motion PT Goal 1 Goal / Goal Update 1. Lumbar ROM full and pain free in all planes in order to do yard work Target Visit 18 Progress Partially Met PT Goal 2 Goal / Goal Update 1. Improve R hip abdcution ROM to 45 degrees to improve functional mobility for gait cycle 2. Improve R hip extension to 10+ degrees to improve terminal stance of gait pattern Target Visit 18 PT Problem 5 PT Problem #5 Impaired Functional ADLs PT Goal 1 Goal / Goal Update 1. Patient will ambulate without walker for at least 2 weeks Target Visit 10 Progress Met
--- NOTE | 2024-02-20 09:47 | PTOPPROG ---
Assessment and note entered by Giovani Mo, PT Evaluation Information Assessment Status Progress ICD-10 Condition Codes (PT) Pain in low back M54.50,Weakness R53.1 Subjective Information Reports that pain in the back is much better but he is having R hip pain that is both anterior and superior. Reports that he missed out on a few visits due to a pancreatic attack. Assessment PT Clinical Summary Patient presents with improved back pain at this time with an altered increase in R hip pain. ROM assessments find decreased mobility of R hip with pain in abduction and extension. Patient is showing benefit from skilled therapy and will continue to benefit to meet original and updated goals for reduced pain and improved gross function . Plan of Care Interventions Electrical Stimulation,Gait Training,Hot Pack/Cold Pack,Manual Therapy,Mechanical Traction,Neuro Re- education,Patient/Caregiver Education,Therapeutic Activities,Therapeutic Exercise PT Services Indicated Yes Treatment Frequency and 1-2x/week for 8 visits Duration These treatments will address the objective and functional deficits as defined above. The patient will be advanced safely and appropriately in order for the patient to progress towards his/her prior level of function. Additional exercises will be introduced and as well as a comprehensive home exercise program upon discharge, if needed, ?to ensure carryover of functional gains achieved in the clinic. This treatment plan has been reviewed and agreement upon by the patient.
--- NOTE | 2024-03-19 13:34 | PTOPDC ---
Assessment and note entered by Rosalba Hinds, PT Assessment Status Discharge ICD-10 Condition Codes (PT) Pain in low back M54.50,Weakness R53.1 Subjective Information frustrated that still having back pain; was going to the fitness center for exercises-- stepper, doing 8 weight machines for arms and legs- light weights, 3x/wk before hurt his back, now only done a few times & felt OK after them; been doing the exercises from here; pancreatitis has resolved for the most part; have not been doing much at all lately-- afraid to hurt my back and not know what to do. agree to d/c PT, return to fitness center 3x/wk and stretching every day, lifting the right way; Reported Pain Level Pain Score Self Report Additional Pain Score Comments pain range in the past week: 0-6/10; lumbar R and L, R hip: anterior to lateral proximal iliac crest; increase pain: when awaken in AM; after sitting on couch that is sunken in, about 1 hour; decrease pain; moving around; heat and ice help temporarily; taking tylenol few times; have a home stim unit, have not been using it lately; Assessment PT Clinical Summary Joshua has received a total of 18 PT sessions. With today's assessment: pain rating of 0-6/10, in R and L lumbar and R anterior-lateral superior hip joint; self assessment with Oswestry rating of 30% limitation in activity level; good strength of trunk and LE's; good gait pattern and speed; R hip has decreased flexion, extension and abduction ROM, compared to the L with pain increase with IR motion; Education for HEP, pain management with balance of activity/rest, use of heat and stretching; correct lifting technique, fitness exercises and stretching program. The goals were partially achieved. Discharge PT. He is to continue with his HEP, return to the fitness center with progression of activity and monitor pain. He continues to have pain over R hip with decrease ROM of joint--? OA of hip. Plan of Care PT Services Indicated No
== END 2024-03-19 14:19 | disposition home or self-care (01) ==
LOC: ANHPT 12:30
PROVIDERS: PCP Family Medicine; Visit Provider Family Medicine
DX: M54.9 Dorsalgia, unspecified (principal); M54.50 Low back pain, unspecified; R53.1 Weakness
CPT/HCPCS: 97014; 97110; 97140; 97161; 97530; G0283

== ENCOUNTER 2024-07-03 11:52 | Outpatient (CLI) | payer MEDICARE, SELFPAY ==
--- NOTE | ~2024-07-03 | XR_ITS ---
CHEST RADIOGRAPH, PA AND LATERAL CLINICAL HISTORY: R06.00 - Dyspnea, unspecified . COMPARISON: 01/07/2024 TECHNIQUE: PA and lateral views of the chest. FINDINGS The cardiomediastinal silhouette is unremarkable. The lungs are clear. IMPRESSION: No focal infiltrate or effusion. Reviewed, dictated and finalized at location A.
== END 2024-07-03 11:53 | disposition home or self-care (01) ==
LOC: GOSHIMG 11:52
PROVIDERS: PCP Nurse Practitioner Family; Visit Provider Nurse Practitioner Family
DX: R06.00 Dyspnea, unspecified (principal); R06.89 Other abnormalities of breathing
CPT/HCPCS: 71046

== ENCOUNTER 2024-09-21 08:06 | Outpatient (CLI) | payer MEDICARE, SELFPAY ==
--- OUTSIDE RECORDS SUMMARY | 2024-09-21 08:11 | XMS_ITS | Encounter Summary ---
Author Organization [facility] Address [address] [place] [address] Care Team Providers Care Supplier Relationship Director Name Role Phone Unavailable Primary Care Provider Unavailabl e Encounter Details Date Type Department Care Team (Late st Contact Info) Description 12/14/2023 Lab Requisition [facility] - DermPath Lab [address] [place] [id number] Yousif [address] MD [address] [place] [address] Social History Tobacco Use Types Packs/Day Years Used Date Smoking Tobacco: Never Assessed Sex and Gender Information Value Date Recorded Sex Assigned at Not on file Legal Sex Male 3:22 PM CDT Gender Identity Not on file Sexual Orientation Not on file documented as of this encounter Plan of Treatment Not on file documented as of this encounter Procedures Procedure Name Priority Date/Time Associated Diagnosis Comments DERMATOPATHOLOGY Routine 12/12/2023 12:0 0 AM HANDKERCHIEF SAMPLE CLERK documented in this encounter Results * DERMATOPATHOLOGY (12/12/2023 12:00 AM HANDKERCHIEF SAMPLE CLERK) Case Report Dermatopathology Report Case: [id number] Authorizing Provider: Yousif Way MD Collected: 12/12/2023 12:00 AM Ordering Location: [facility] - Received: 12/14/2023 06:55 AM DermPath Lab Pathologist: Soy Escalera MD Specimen: Skin, right hoahaoism 3:24 PM HANDKERCHIEF SAMPLE CLERK DERMATOPATHOLOGY LABORATORY Final Diagnosis Specimen A. SKIN, right hoahaoism: BASAL CELL CARCINOMA (C44.319) HEALING SKIN CHANGES (L90.5) (see microscopic description) 3:24 PM HANDKERCHIEF SAMPLE CLERK DERMATOPATHOLOGY LABORATORY at 1524 HANDKERCHIEF SAMPLE CLERK Clinical History BCC Bx proven [id number] 3:24 PM [facility] DERMATOPATHOLOGY LABORATORY Gross Description Specimen A: Received is one formalin filled container labeled with the patient's name and designated right hoahaoism. The specimen consists of a curettage and desiccation biopsy measuring 5x2x1 mm. Jar 0. 3:24 PM [facility] DERMATOPATHOLOGY LABORATORY Microscopic Description Specimen A. SKIN, right hoahaoism: Within the dermis there are aggregates of basaloid cells with a high nuclear to cytoplasmic ratio and peripheral palisading.There is epidermal hyperplasia beneath which there are vascular proliferation, fibroblasts, and an edematous stroma. Additional deeper sections were obtained and reviewed. 3:24 PM [facility] DERMATOPATHOLOGY LABORATORY Disclaimer An external and internal positive and negative controls are appropriate for the histochemical, immunohistochemical and immunofluorescence stain(s) in this case (if any), except where stated explicitly. The performance characteristics of the stain(s) cited in this report were developed and its performance characteristic determined by the Dermatopathology Laboratory at [facility], directed by Dr. Keri Escalera. These tests need not be, and therefore are not, approved by the [place] Food and Drug Administration. The tests are used for clinical purposes. Billing Codes Specimen Charges Stain Charges 25920 1 3:24 PM [facility] DERMATOPATHOLOGY LABORATORY Embedded Images 3:24 PM [facility] DERMATOPATHOLOGY LABORATORY Pathology/Cytolog y TISSUE SPECIMEN FROM SKIN / Unknown 12/12/2023 12/14/2023 6:55 AM HANDKERCHIEF SAMPLE CLERK us Yousif Way MD LAB - PATHOLOGY/CYTOLOGY ORDERAB LES Final Result DERMATOPATHOLOGY LABORATORY [facility] - Department of Dermatology [address], [address] [phone] documented in this encounter Visit Diagnoses Not on filedocumented in this encounter
--- OUTSIDE RECORDS SUMMARY | 2024-09-21 08:11 | XMS_ITS | Clinical Summary ---
Author Organization [facility] [employer] Address [address] [facility] [place] [address] Care Team Providers Care Erp Specialist Name Role Phone Unavailable Primary Care Provider Unavailabl e Source Comments [facility] [employer],non-owned Affiliates and Associated Physician Practices is amultiple site organization consisting of ambulatory clinics and hospital sitesin [place], [place], [place] and [place]. This disclosure is being madepursuant to the Care Everywhere program and may not contain all information available regarding this patient. Last updated 17.[facility] [employer] Social History Tobacco Use Types Packs/Day Years Used Date Smoking Tobacco: Never Assessed Sex and Gender Information Value Date Recorded Sex Assigned at Not on file Legal Sex Male 3:22 PM CDT Gender Identity Not on file Sexual Orientation Not on file Plan of Treatment Health Maintenance Due Date Last Done Comments MEDICARE AWV 12 MONTHS 1945 HEPATITIS C SCREENING 11/14/1965 DTAP/TDAP/TD VACCINES (1 - Tdap) 11/18/1966 PNEUMOCOCCAL VACCINE 50+ (1 of 1 - PCV) 11/18/1997 ZOSTER VACCINE (1 of 2) 11/18/1997 Respiratory Syncytial Virus (RSV) Vaccine Pt: or over 60 yrs (1 - 1-dose 75+ series) 11/18/2022 COVID-19 VACCINE (1 - 2023-2 5 season) 2023 DEPRESSION SCREENING 02/08/2024 INFLUENZA VACCINE (#1) 2024 HEPATITIS B VACCINE Aged Out No longe r eligible based on patient's age to complete this topic HIB VACCINE Aged Out No longer eligi ble based on patient's age to complete this topic HPV VACCINE Aged Out No longer eligi ble based on patient's age to complete this topic MENINGOCOCCAL (Group B) VACC INE SHARED DECISION-MAKING Aged Out No longer eligibl e based on patient's age to complete this topic MENINGOCOCCAL GROUPS A/C/Y/W VACCINE Aged Out No longer eligible b ased on patient's age to complete this topic Insurance MEDICARE [facility]
--- OUTSIDE RECORDS SUMMARY | 2024-09-21 08:11 | XMS_ITS | Encounter Summary ---
Author Organization [facility] Address [address] [place] [address] Care Team Providers Care Hairspring Truing Inspector Name Role Phone Unavailable Primary Care Provider Unavailabl e Encounter Details Date Type Department Care Team (Late st Contact Info) Description 11/28/2023 Lab Requisition [facility] - DermPath Lab [address] [place] [phone] Yousif [address] MD [address] [place] [address] Social History Tobacco Use Types [...] Priority Date/Time Associated Diagnosis Comments DERMATOPATHOLOGY Routine 11/28/2023 12:0 0 AM CDT documented in this encounter Results * DERMATOPATHOLOGY (11/28/2023 12:00 AM CDT) Case Report Dermatopathology Report Case: [id number] Authorizing Provider: Yousif Way MD Collected: 11/28/2023 12:00 AM Ordering Location: [facility] - Received: 11/28/2023 03:55 PM DermPath Lab Pathologist: Kiesha Maria MD Specimen: Skin, right restorationist 12:34 PM CDT DERMATOPATHOLOGY LABORATORY Final Diagnosis Specimen A. SKIN, right restorationist: BASAL CELL CARCINOMA, NODULAR TYPE (C44.319) 12:34 PM CDT DERMATOPATHOLOGY LABORATORY at 1234 CDT Clinical History R/O BCC, SCC 12:34 PM CDT DERMATOPATHOLOGY LABORATORY Gross Description Specimen A: Received is one formalin filled container labeled with the patient's name and designated right restorationist. The specimen consists of a shave biopsy measuring 7x4x1 mm. Jar 0. 12:34 PM CDT DERMATOPATHOLOGY LABORATORY Microscopic Description Specimen A. SKIN, right restorationist: Within the dermis there are aggregates of basaloid cells with a high nuclear to cytoplasmic ratio and peripheral palisading. 12:34 PM CDT DERMATOPATHOLOGY LABORATORY Disclaimer An external and internal positive and negative controls are appropriate for the histochemical, immunohistochemical and immunofluorescence stain(s) in this case (if any), except where stated explicitly. The performance characteristics of the stain(s) cited in this report were developed and its performance characteristic determined by the Dermatopathology Laboratory at [facility], directed by Dr. Keri Escalera. These tests need not be, and therefore are not, approved by the [place] Food and Drug Administration. The tests are used for clinical purposes. Billing Codes Specimen Charges Stain Charges 62769 1 12:34 PM CDT DERMATOPATHOLOGY LABORATORY Embedded Images 12:34 PM CDT DERMATOPATHOLOGY LABORATORY Pathology/Cytolog y TISSUE SPECIMEN FROM SKIN / Unknown 11/28/2023 11/28/2023 3:[address] MD LAB - PATHOLOGY/CYTOLOGY ORDERAB LES Final Result DERMATOPATHOLOGY LABORATORY [facility] - Department of Dermatology [address] [place] [address], [facility] [phone] documented in this encounter Visit Diagnoses Not on filedocumented in this encounter
[2024-09-21 13:26] LABS: Alanine Aminotransferase 23 U/L (6-50); Albumin Level 3.5 g/dL (3.5-5.1); Alkaline Phosphatase 54 U/L (38-126); Anion Gap 4 mmol/L (4-12); Aspartate Amino Transferase 38 U/L (17-59); Bilirubin,Total 0.8 mg/dL (0.2-1.3); Blood Urea Nitrogen 17 mg/dL (9-20); Calcium 9.0 mg/dL (8.4-10.2); Carbon Dioxide 29 mmol/L (22-30); Chloride 104 mmol/L (98-107); Cholesterol 158 mg/dL (0-200); Estimated Glomerular Filt Rate > 60; Glucose 89 mg/dL (65-110); HDL Direct 49 mg/dL; Potassium 4.4 mmol/L (3.4-5.0); Sodium 137 mmol/L (137-145); Total Protein 6.3 g/dL (6.3-8.2); Triglycerides 57 mg/dL (<150)
[2024-09-21 14:54] LABS: Vitamin B12 717.0 pg/mL (239-931)
== END 2024-09-21 08:07 | disposition home or self-care (01) ==
PROVIDERS: PCP Nurse Practitioner Family; Visit Provider Family Medicine
DX: K85.90 Acute pancreatitis without necrosis or infection, unspecified (principal); K76.0 Fatty (change of) liver, not elsewhere classified; I10 Essential (primary) hypertension
CPT/HCPCS: 36415; 80053; 80061; 82607